=== PATIENT | female | born 1930 | race Caucasian/White ===

== ENCOUNTER 2017-09-27 10:48 | Emergency (ER) | payer OTHER ==
--- NOTE | 2017-09-27 11:49 | RAD REPORT ---
EXAM DESCRIPTION: Shoulder Right 2 View - 09/27/2017 11:32 am CLINICAL HISTORY: Trauma to the right shoulder, shoulder pain, cutaneous bruising COMPARISON: None. TECHNIQUE: Two-view right shoulder examination was performed. Initial image is in external rotation. The second image is in internal rotation scapula Y positioning. FINDINGS: No dislocation of the humeral head and no acute fracture changes identifiable. Advanced de generative changes are present with numerous subcortical degenerative cysts in the humeral head along with marginal spurring. There are spurring changes along the inferior margin of the glenoid. Patient has advanced degenerative change to the acromion. There are volume loss changes along the lateral ma rgin. This appears to be degenerative in etiology. A pathologic bone process is not suspected. Inferi keven directed spurring seen at the AC joint. Acromial humeral joint space is narrowed. Soft tissues are prominent along the lateral aspect of the humeral head. Muscle volume is relatively low. This may be a soft tissue hematoma. Ribs and parenchyma of the upper right chest show no acute findings. 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 No fracture or acute bone finding. Suspected hematoma in the soft tissues lateral to the humeral head.
--- NOTE | 2017-09-27 11:59 | ER ---
Nurse's Notes [facility] Name: Shasta Martinez Age: 87 yrs Sex: Female : 1930 Arrival Date: 09/27/2017 Time: 10:52 Bed 17 Private MD: Dagoberto Pleitez Diagnosis: Contusion of right shoulder Presentation: 09/27 10:54 Presenting complaint: Patient states: "I hit my shoulder on the doorway about 4 days aa5 ago". pt c/o right shoulder pain. Yellowish bruising noted to right anterior shoulder. 10:54 Transition of care: patient was not received from another setting of care. Onset of aa5 symptoms was September 2017. Risk Assessment: Do you want to hurt yourself or someone else? Patient reports no desire to harm self or others. Initial Sepsis Screen: Does the patient meet any 2 criteria? No. Patient's initial sepsis screen is negative. Does the patient have a suspected source of infection? No. Patient's initial sepsis screen is negative. Care prior to arrival: None. 10:54 Method Of Arrival: Ambulatory aa5 10:54 Acuity: SARIKA 4 aa5 Historical: - Allergies: 10:55 PENICILLINS; aa5 10:55 Oxycodone; aa5 10:55 "mycins"; aa5 - PMHx: 10:55 Hypertension; Atrial Fib; aa5 - PSHx: 11:07 Hysterectomy; Appendectomy; tawanna hips; L knee; aa5 - Social history:: Smoking status: Patient/guardian denies using tobacco. - Ebola Screening: : No symptoms or risks identified at this time. - Family history:: not pertinent. - Hospitalizations: : No recent hospitalization is reported. Screenin:35 Abuse screen: Denies threats or abuse. Denies injuries from another. Nutritional jl7 screening: No deficits noted. Tuberculosis screening: No symptoms or risk factors identified. Assessment: 11:35 General: Appears in no apparent distress. uncomfortable, Behavior is calm, cooperative, jl7 appropriate for age. Pain: Complains of pain in right shoulder Pain does not radiate. Pain currently is 2 out of 10 on a pain scale. Quality of pain is described as aching, Pain began 4 days ago. Neuro: Level of Consciousness is awake, alert, obeys commands, Oriented to person, place, time, situation. Cardiovascular: Patient's skin is warm and dry. Respiratory: Airway is patent Respiratory effort is even, unlabored, Respiratory pattern is regular, symmetrical. GI: No signs and/or symptoms were reported involving the gastrointestinal system. : No signs and/or symptoms were reported regarding the genitourinary system. EENT: No signs and/or symptoms were reported regarding the EENT system. Derm: Skin is pink, warm \\T\\ dry. Musculoskeletal: Range of motion: limited in right shoulder Swelling present in right shoulder. Vital Signs: 10:55 BP 170 / 82; Pulse 83; Resp 16 S; Temp 97.7(O); Pulse Ox 96% on R/A; Weight 42.64 kg aa5 (R); Height 4 ft. 11 in. (149.86 cm) (R); Pain 2/10; 12:12 BP 152 / 80; Pulse 70; Resp 18; Pulse Ox 97% on R/A; aj1 10:55 Body Mass Index 18.99 (42.64 kg, 149.86 cm) aa5 ED Course: 10:52 Patient arrived in ED. mr 10:53 Dagoberto Pleitez is Private Physician. mr 10:54 Arm band placed on Patient placed in an exam room, on a stretcher. aa5 10:55 Teodoro Walters MD is Attending Physician. rn 11:00 Liz Ribera RN is Primary Nurse. jl7 11:04 Triage completed. aa5 11:30 X-ray completed. Portable x-ray completed in exam room. Patient tolerated procedure jb2 well. 11:32 XRAY Shoulder RIGHT 2 view In Process Unspecified. EDMS 11:35 Patient has correct armband on for positive identification. Placed in gown. Bed in low jl7 position. Call light in reach. Side rails up X 1. Pulse ox on. NIBP on. 12:13 No provider procedures requiring assistance completed. Patient did not have IV access aj1 during this emergency room visit. Administered Medications: No medications were administered Outcome: 11:58 Discharge ordered by . rn 12:13 Discharged to home ambulatory. aj1 12:13 Condition: good 12:13 Discharge instructions given to patient, Instructed on discharge instructions, follow up and referral plans. Demonstrated understanding of instructions, follow-up care. 12:13 Patient left the ED. aj1 Signatures: Dispatcher [employer] EDMey Robles, RN RN aj1 Ava Glynn mr Phil, Bassem li2 Teodoro Walters MD MD rn Calderon, Divine, RN RN aa5 Liz Ribera RN RN jl7
--- NOTE | 2017-09-27 11:59 | EDPHYS ---
Physician Documentation [facility] Name: Shasta Martinez Age: 87 yrs Sex: Female : 1930 Arrival Date: 09/27/2017 Time: 10:52 Bed 17 Private MD: Dagoberto Pleitez ED Physician Teodoro Walters HPI: 09/27 11:08 This 87 yrs old Female presents to ER via Ambulatory with complaints of rn Shoulder Pain. 11:08 The patient or guardian complains of contusion, an injury. right shoulder. Onset: The rn symptoms/episode began/occurred 4 day(s) ago. Associated signs and symptoms: Pertinent negatives: chest pain, neck pain, tingling. Severity of symptoms: At their worst the symptoms were mild, in the emergency department the symptoms are unchanged. The patient has not experienced similar symptoms in the past. Reports hit shoulder on doorway 4 days ago, takes aspirin but no blood thinners, reports swelling was worse yesterday, still able to move arm at baseline (baseline is weak elevating arm), told by her physician to get xray. No other injuries. . Historical: - Allergies: 10:55 PENICILLINS; aa5 10:55 Oxycodone; aa5 10:55 "mycins"; aa5 - PMHx: 10:55 Hypertension; Atrial Fib; aa5 - PSHx: 11:07 Hysterectomy; Appendectomy; tawanna hips; L knee; aa5 - Social history:: Smoking status: Patient/guardian denies using tobacco. - Ebola Screening: : No symptoms or risks identified at this time. - Family history:: not pertinent. - Hospitalizations: : No recent hospitalization is reported. ROS: 11:08 Constitutional: Negative for fever, chills, and weight loss, Eyes: Negative for injury, rn pain, redness, and discharge, Neck: Negative for injury, pain, and swelling, Cardiovascular: Negative for chest pain, palpitations, and edema, Respiratory: Negative for shortness of breath, cough, wheezing, and pleuritic chest pain, Abdomen/GI: Negative for abdominal pain, nausea, vomiting, diarrhea, and constipation, MS/Extremity: + right shoulder pain and injury Skin: Negative for injury, rash, and discoloration, Neuro: Negative for headache, weakness, numbness, tingling, and seizure. Exam: 11:08 Constitutional: This is a well developed, well nourished patient who is awake, alert, rn and in no acute distress. Head/Face: Normocephalic, atraumatic. Neck: Trachea midline, no thyromegaly or masses palpated, and no cervical lymphadenopathy. Supple, full range of motion without nuchal rigidity, or vertebral point tenderness. No Meningismus. Chest/axilla: Normal chest wall appearance and motion. Nontender with no deformity. No lesions are appreciated. MS/ Extremity: Pulses equal, no cyanosis. Neurovascular intact. Full passive range of motion. Equal circumference. + ecchymosis to anterior and lateral right shoulder Vital Signs: 10:55 BP 170 / 82; Pulse 83; Resp 16 S; Temp 97.7(O); Pulse Ox 96% on R/A; Weight 42.64 kg aa5 (R); Height 4 ft. 11 in. (149.86 cm) (R); Pain 2/10; 12:12 BP 152 / 80; Pulse 70; Resp 18; Pulse Ox 97% on R/A; aj1 10:55 Body Mass Index 18.99 (42.64 kg, 149.86 cm) aa5 MDM: 10:55 Patient medically screened. rn 11:58 Differential diagnosis: Anterior dislocation without fracture, humeral head fracture, rn glenoid fracture, DJD, tendonitis. Data reviewed: vital signs, nurses notes, radiologic studies, plain films, and as a result, I will discharge patient. Counseling: I had a detailed discussion with the patient and/or guardian regarding: the historical points, exam findings, and any diagnostic results supporting the discharge/admit diagnosis, radiology results, the need for outpatient follow up, to return to the emergency department if symptoms worsen or persist or if there are any questions or concerns that arise at home. Special discussion: I discussed with the patient/guardian in detail that at this point there is no indication for admission to the hospital. It is understood, however, that if the symptoms persist or worsen the patient needs to return immediately for re-evaluation. 11:58 ED course: Pt with ROM at baseline, not on strong anticoagulation, xray shows narrow rn joint space, do not suspect hemarthrosis at this time, will dc home with warm compresses and gradual increase in ROM exercises with pcp f/u.. 09/27 11:05 Order name: XRAY Shoulder RIGHT 2 view; Complete Time: 11:53 rn Administered Medications: No medications were administered Disposition: 09/27/17 11:58 Discharged to Home. Impression: Contusion of right shoulder. - Condition is Stable. - Discharge Instructions: Contusion. - Medication Reconciliation Form, Thank You Letter, Antibiotic Education, Prescription Opioid Use form. - Follow up: Private Physician; When: As needed; Reason: Recheck today's complaints, Re-evaluation by your physician. - Problem is new. - Symptoms have improved. Signatures: Dispatcher [employer] EDMey Robles RN RN aj1 Teodoro Walters MD MD rn Calderon, Audri RN RN aa5 Corrections: (The following items were deleted from the chart) 12:13 11:58 09/27/2017 11:58 Discharged to Home. Impression: Contusion of right shoulder. aj1 Condition is Stable. Forms are Medication Reconciliation Form, Thank You Letter, Antibiotic Education, Prescription Opioid Use. Follow up: Private Physician; When: As needed; Reason: Recheck today's complaints, Re-evaluation by your physician. Problem is new. Symptoms have improved. rn
== END 2017-09-27 12:13 | disposition home or self-care (01) ==
LOC: ER 10:48
DX: S40.011A Contusion of right shoulder, initial encounter (principal); W22.01XA Walked into wall, initial encounter; Y92.019 Unspecified place in single-family (private) house as the place of occurrence of the external cause; Z88.1 Allergy status to other antibiotic agents; Z88.5 Allergy status to narcotic agent; Z88.0 Allergy status to penicillin; I10 Essential (primary) hypertension; I48.91 Unspecified atrial fibrillation
CPT/HCPCS: 99283

== ENCOUNTER 2017-10-20 04:59 | Emergency (ER) | payer OTHER ==
[2017-10-20] MEDS ORDERED: HYDROCODONE/APAP 5/325 MG TAB ONE (05:43)
[2017-10-20] MEDS ORDERED: LIDOCAINE 1% W/EPI 1:100,000 MDV 50 ML VIAL ONE (06:30)
[2017-10-20] MEDS ORDERED: SMZ./TMP. 800/160 MG TABLET ONE (06:57)
--- NOTE | 2017-10-20 07:03 | EDPHYS ---
Physician Documentation [facility] Name: Shasta Martinez Age: 87 yrs Sex: Female : 1930 Arrival Date: 10/20/2017 Time: 04:59 Bed 6 Private MD: Dagoberto Pleitez ED Physician Vance Rodriguez HPI: 10/20 05:26 This 87 yrs old Female presents to ER via Unassigned with complaints of madonna Shoulder Pain. 05:26 The patient or guardian complains of decreased range of motion, pain, swelling. right madonna shoulder. Context: The problem was sustained at home. Onset: The symptoms/episode began/occurred 1 month(s) ago. Modifying factors: the symptoms are alleviated by remaining still, The symptoms are aggravated by movement. Associated signs and symptoms: The patient has no apparent associated signs or symptoms. Severity of symptoms: At their worst the symptoms were mild. The patient has not experienced similar symptoms in the past. Historical: - Allergies: 05:37 "mycins"; ao 05:37 Oxycodone; ao 05:37 PENICILLINS; ao 05:37 IV contrast; ao - Home Meds: 05:37 aspirin 81 mg Oral chew 1 tab once daily [Active]; Protonix Oral [Active]; Cartia XT ao 120 mg Oral cp24 1 cap once daily [Active]; Meclizine Oral [Active]; losartan-hydrochlorothiazide 50-12.5 mg oral tab 1 tab once daily [Active]; - PMHx: 05:37 Atrial Fib; Hypertension; ao - PSHx: 05:37 Appendectomy; Tonsillectomy; Knee surgery; ao - Immunization history:: Adult Immunizations up to date. - Social history:: Smoking status: Patient uses tobacco products. - Family history:: not pertinent. - Ebola Screening: : Patient negative for fever greater than or equal to 101.5 degrees Fahrenheit, and additional compatible Ebola Virus Disease symptoms Patient denies exposure to infectious person Patient denies travel to an Ebola-affected area in the 21 days before illness onset. ROS: 05:26 Constitutional: Negative for fever, chills, and weight loss, Eyes: Negative for injury, madonna pain, redness, and discharge, ENT: Negative for injury, pain, and discharge, Neck: Negative for injury, pain, and swelling, Cardiovascular: Negative for chest pain, palpitations, and edema, Respiratory: Negative for shortness of breath, cough, wheezing, and pleuritic chest pain, Abdomen/GI: Negative for abdominal pain, nausea, vomiting, diarrhea, and constipation, Back: Negative for injury and pain, : Negative for injury, bleeding, discharge, and swelling, Skin: Negative for injury, rash, and discoloration, Neuro: Negative for headache, weakness, numbness, tingling, and seizure, Psych: Negative for depression, anxiety, suicide ideation, homicidal ideation, and hallucinations, Allergy/Immunology: Negative for hives, rash, and allergies, Endocrine: Negative for neck swelling, polydipsia, polyuria, polyphagia, and marked weight changes, Hematologic/Lymphatic: Negative for swollen nodes, abnormal bleeding, and unusual bruising. 05:26 MS/extremity: Positive for decreased range of motion, pain, swelling, tenderness, of the anterior aspect of right shoulder and posterior aspect of right shoulder. Exam: 05:26 Constitutional: This is a well developed, well nourished patient who is awake, alert, madonna and in no acute distress. Head/Face: Normocephalic, atraumatic. Eyes: Pupils equal round and reactive to light, extra-ocular motions intact. Lids and lashes normal. Conjunctiva and sclera are non-icteric and not injected. Cornea within normal limits. Periorbital areas with no swelling, redness, or edema. ENT: Nares patent. No nasal discharge, no septal abnormalities noted. Tympanic membranes are normal and external auditory canals are clear. Oropharynx with no redness, swelling, or masses, exudates, or evidence of obstruction, uvula midline. Mucous membranes moist. Neck: Trachea midline, no thyromegaly or masses palpated, and no cervical lymphadenopathy. Supple, full range of motion without nuchal rigidity, or vertebral point tenderness. No Meningismus. Chest/axilla: Normal chest wall appearance and motion. Nontender with no deformity. No lesions are appreciated. Cardiovascular: Regular rate and rhythm with a normal S1 and S2. No gallops, murmurs, or rubs. Normal PMI, no JVD. No pulse deficits. Respiratory: Lungs have equal breath sounds bilaterally, clear to auscultation and percussion. No rales, rhonchi or wheezes noted. No increased work of breathing, no retractions or nasal flaring. Abdomen/GI: Soft, non-tender, with normal bowel sounds. No distension or tympany. No guarding or rebound. No evidence of tenderness throughout. Back: No spinal tenderness. No costovertebral tenderness. Full range of motion. Female : Normal external genitalia. Skin: Warm, dry with normal turgor. Normal color with no rashes, no lesions, and no evidence of cellulitis. Neuro: Awake and alert, GCS 15, oriented to person, place, time, and situation. Cranial nerves II-XII grossly intact. Motor strength 5/5 in all extremities. Sensory grossly intact. Cerebellar exam normal. Normal gait. Psych: Awake, alert, with orientation to person, place and time. Behavior, mood, and affect are within normal limits. 05:26 Musculoskeletal/extremity: Extremities: decreased ROM, pain, swelling, tenderness, decreased ROM, ecchymosis, ROM: limited active range of motion, limited passive range of motion, Circulation is intact in all extremities. Compartment Syndrome exam of affected extremity: is normal. DVT Exam: negative Homans' sign noted on exam, no appreciated bluish discoloration, no erythema, no increased warmth, pain, swelling, tenderness. Vital Signs: 05:35 BP 159 / 89; Pulse 73; Resp 16; Temp 97.8(A); Pulse Ox 97% on R/A; Weight 40.82 kg (R); ao Height 5 ft. 2 in. (157.48 cm) (R); Pain 7/10; 06:07 BP 154 / 71; Pulse 76; Resp 18; Pulse Ox 98% on R/A; ao 07:12 BP 159 / 71; Pulse 72; Resp 16; Pulse Ox 99% on R/A; Pain 0/10; ao 05:35 Body Mass Index 16.46 (40.82 kg, 157.48 cm) ao Procedures: 06:33 Joint Treatment: of right shoulder using 18 gauge needle, Removed bloody fluid, Dressed [facility] with band aid, Neosporin, Patient tolerated well. 06:59 Joint Treatment: Removed 20 cc. [facility] MDM: 05:03 Patient medically screened. [facility] 05:29 Data reviewed: vital signs, nurses notes, radiologic studies, plain films. [facility] 10/20 05:25 Order name: Shoulder Right (2 View) XRAY [facility] 07/12 05:25 Order name: Sling; Complete Time: 05:31 [facility] 10/20 06:38 Order name: Dressing - Wound; Complete Time: 07:07 [facility] 10/20 06:38 Order name: Gloves, Sterile; Complete Time: 07:07 [facility] 10/20 06:38 Order name: Setup Suture Tray; Complete Time: 07:07 [facility] Administered Medications: 05:45 Drug: Dexter 5 mg-325 mg 1 tabs Route: PO; ao 07:06 Follow up: Response: No adverse reaction ao 07:06 Drug: Bactrim (160 mg-800 mg (DS) 1 tablet Route: PO; ao 07:06 Follow up: Response: Medication administered at discharge. ao 07:06 Drug: Lidocaine-Epinephrine -1%: (1:100,000) 4 ml Volume: 20 ml; Route: Infiltration; ao Disposition: 10/20/17 07:03 Discharged to Home. Impression: Pain in right shoulder - hematoma. - Condition is Stable. - Discharge Instructions: Shoulder Pain, Shoulder Pain, [id number]. - Prescriptions for Tylenol- Codeine #3 300-30 mg Oral Tablet - take 2 tablet by ORAL route every 6 hours As needed; 30 tablet. Motrin IB 200 mg Oral Tablet - take 1 tablet by ORAL route every 6 hours As needed as needed with food; 20 tablet. Bactrim 400- 80 mg Oral Tablet - take 1 tablet by ORAL route every 12 hours; 14 tablet. - Medication Reconciliation Form, Thank You Letter, Antibiotic Education, Prescription Opioid Use form. - Follow up: Dagoberto Pleitez; When: 2 - 3 days; Reason: Recheck today's complaints, Continuance of care, Re-evaluation by your physician. Follow up: Mike Will; When: 1 - 2 days; Reason: Recheck today's complaints, Re-evaluation by your physician. - Problem is new. - Symptoms have improved. Signatures: Dispatcher [employer] EDVance Cordero MD MD cha Ortiz, Alex RN RN ao Corrections: (The following items were deleted from the chart) 07:14 07:03 10/20/2017 07:03 Discharged to Home. Impression: Pain in right shoulder - ao hematoma. Condition is Stable. Discharge Instructions: Shoulder Pain, Shoulder Pain, [id number]. Prescriptions for Tylenol-Codeine #3 300-30 mg Oral Tablet - take 2 tablet by ORAL route every 6 hours As needed; 30 tablet, Motrin IB 200 mg Oral Tablet - take 1 tablet by ORAL route every 6 hours As needed as needed with food; 20 tablet, Bactrim 400-80 mg Oral Tablet - take 1 tablet by ORAL route every 12 hours; 14 tablet. and Forms are Medication Reconciliation Form, Thank You Letter, Antibiotic Education, Prescription Opioid Use. Follow up: Dagoberto Pleitez; When: 2 - 3 days; Reason: Recheck today's complaints, Continuance of care, Re-evaluation by your physician. Follow up: Mike Will; When: 1 - 2 days; Reason: Recheck today's complaints, Re-evaluation by your physician. Problem is new. Symptoms have improved. madonna
--- NOTE | 2017-10-20 07:03 | ER ---
Nurse's Notes [facility] Name: Shasta Martinez Age: 87 yrs Sex: Female : 1930 Arrival Date: 10/20/2017 Time: 04:59 Bed 6 Private MD: Dagoberto Pleitez Diagnosis: Pain in right shoulder-hematoma Presentation: 10/20 05:31 Presenting complaint: Patient states: "I felt few week ago and tonight my left arm is ao hurting me again" Patient report pain level 7/10. Transition of care: patient was not received from another setting of care. Onset of symptoms is unknown. Risk Assessment: Do you want to hurt yourself or someone else? Patient reports no desire to harm self or others. Initial Sepsis Screen: Does the patient meet any 2 criteria? No. Patient's initial sepsis screen is negative. Does the patient have a suspected source of infection? No. Patient's initial sepsis screen is negative. Care prior to arrival: None. 05:31 Method Of Arrival: Ambulatory ao 05:31 Acuity: SARIKA 3 ao Historical: - Allergies: 05:37 "mycins"; ao 05:37 Oxycodone; ao 05:37 PENICILLINS; ao 05:37 IV contrast; ao - Home Meds: 05:37 aspirin 81 mg Oral chew 1 tab once daily [Active]; Protonix Oral [Active]; Cartia XT ao 120 mg Oral cp24 1 cap once daily [Active]; Meclizine Oral [Active]; losartan-hydrochlorothiazide 50-12.5 mg oral tab 1 tab once daily [Active]; - PMHx: 05:37 Atrial Fib; Hypertension; ao - PSHx: 05:37 Appendectomy; Tonsillectomy; Knee surgery; ao - Immunization history:: Adult Immunizations up to date. - Social history:: Smoking status: Patient uses tobacco products. - Family history:: not pertinent. - Ebola Screening: : Patient negative for fever greater than or equal to 101.5 degrees Fahrenheit, and additional compatible Ebola Virus Disease symptoms Patient denies exposure to infectious person Patient denies travel to an Ebola-affected area in the 21 days before illness onset. Screenin:47 Abuse screen: Denies threats or abuse. Denies injuries from another. Nutritional ao screening: No deficits noted. Tuberculosis screening: No symptoms or risk factors identified. Fall Risk None identified. Assessment: 05:37 General: Appears in no apparent distress. comfortable, Behavior is calm, cooperative, ao appropriate for age. Pain: Complains of pain in right shoulder Pain currently is 7 out of 10 on a pain scale. Neuro: Level of Consciousness is awake, alert, obeys commands, Oriented to Moves all extremities. Full function Speech is normal, Facial symmetry appears normal. Cardiovascular: Capillary refill < 3 seconds Patient's skin is warm and dry. Respiratory: Airway is patent Respiratory effort is even, unlabored, Respiratory pattern is regular, symmetrical. GI: Abdomen is non-distended. : No signs and/or symptoms were reported regarding the genitourinary system. EENT: No signs and/or symptoms were reported regarding the EENT system. Derm: Skin is intact, Skin is pink, warm \\T\\ dry. normal, Skin temperature is warm. Musculoskeletal: Reports pain in right shoulder. 06:07 Reassessment: Patient appears in no apparent distress at this time. Patient and/or ao family updated on plan of care and expected duration. Pain level reassessed. Patient is alert, oriented x 3, equal unlabored respirations, skin warm/dry/pink. 07:12 Reassessment: DC instructions given to patient and daughter. Patient understand the POC ao and to follow up with PCP and orthopedic. PAtient has no questions at this time. Vital Signs: 05:35 BP 159 / 89; Pulse 73; Resp 16; Temp 97.8(A); Pulse Ox 97% on R/A; Weight 40.82 kg (R); ao Height 5 ft. 2 in. (157.48 cm) (R); Pain 7/10; 06:07 BP 154 / 71; Pulse 76; Resp 18; Pulse Ox 98% on R/A; ao 07:12 BP 159 / 71; Pulse 72; Resp 16; Pulse Ox 99% on R/A; Pain 0/10; ao 05:35 Body Mass Index 16.46 (40.82 kg, 157.48 cm) ao ED Course: 04:59 Patient arrived in ED. ds1 05:00 Dagoberto Pleitez is Private Physician. ds1 05:03 Vance Rodriguez MD is Attending Physician. madonna 05:22 Yoel Carrillo RN is Primary Nurse. ao 05:33 Triage completed. ao 05:33 Arm band placed on right wrist. Patient placed in an exam room, on a stretcher, on ao pulse oximetry, Patient notified of wait time. 05:46 X-ray completed. Portable x-ray completed in exam room. Patient tolerated procedure kw well. 05:47 Patient has correct armband on for positive identification. Pulse ox on. NIBP on. ao 06:40 Shoulder Right (2 View) XRAY In Process Unspecified. EDOR 07:03 Dagoberto Pleitez is Referral Physician. [facility] 07:03 Mike Will MD is Referral Physician. madonna 07:07 No provider procedures requiring assistance completed. Patient did not have IV access ao during this emergency room visit. Administered Medications: 05:45 Drug: [place] 5 mg-325 mg 1 tabs Route: PO; ao 07:06 Follow up: Response: No adverse reaction ao 07:06 Drug: Bactrim (160 mg-800 mg (DS) 1 tablet Route: PO; ao 07:06 Follow up: Response: Medication administered at discharge. ao 07:06 Drug: Lidocaine-Epinephrine -1%: (1:100,000) 4 ml Volume: 20 ml; Route: Infiltration; ao Outcome: 07:03 Discharge ordered by . madonna 07:07 Discharged to home ambulatory. ao 07:07 Condition: stable 07:07 Discharge instructions given to patient, Instructed on discharge instructions, follow up and referral plans. Demonstrated understanding of instructions, follow-up care, medications. 07:14 Patient left the ED. ao Signatures: Dispatcher [employer] Vance Mccarthy MD MD cha [place], Demi ds1 Aleksandra Nolasco Alex, RN RN ao
--- NOTE | 2017-10-20 08:45 | RAD REPORT ---
EXAM DESCRIPTION: RAD - Shoulder Right 2 View - 10/20/2017 6:40 am CLINICAL HISTORY: Right shoulder pain status post fall FINDINGS: The bones are osteoporotic. The humeral head is high riding indicative of a chronic rotato r cuff tear A Hill-Sachs deformity is suspected. No dislocation is noted. Moderate to marked osteoarthritis is seen
== END 2017-10-20 07:14 | disposition home or self-care (01) ==
LOC: ER 04:59
PROC: 0R9J3ZZ Drainage of Right Shoulder Joint, Percutaneous Approach (ICD-10-PCS; principal; 2017-10-20)
DX: M25.512 Pain in left shoulder (principal); Z88.5 Allergy status to narcotic agent; Z88.0 Allergy status to penicillin; Z88.3 Allergy status to other anti-infective agents; Z91.041 Radiographic dye allergy status; I10 Essential (primary) hypertension; I48.91 Unspecified atrial fibrillation
CPT/HCPCS: 99283

== ENCOUNTER 2018-03-17 11:58 | Emergency (ER) | payer OTHER ==
--- NOTE | 2018-03-17 12:39 | RAD REPORT ---
EXAM DESCRIPTION: CT - CTHCSPWOC - 03/17/2018 12:27 pm CLINICAL HISTORY: Fall, head and neck trauma, headache, neck pain COMPARISON: None. TECHNIQUE: Axial 5 mm thick images of the head were obtained. Axial 2 mm thick images of the cervic al spine were obtained with sagittal and coronal reconstruction images generated and reviewed. All CT scans are performed using dose optimization technique as appropriate and may include automated exposure control or mA/KV adjustment according to patient size. FINDINGS: No intracranial hemorrhage, mass, edema or acute intracranial finding. No suspicion for acute infarct ion. Patient has prominent chronic ischemic change throughout the cerebral white matter. This is foca lly more prominent in the posterior right frontal lobe. Moderate atrophy is present with ventricular size in proportion. Arterial and physiologic calcifications are present. Mastoid air cells and parana jose sinuses are clear. No globe or orbit abnormality seen. Patient has a small superior left parietal scalp hematoma. No foreign body. Osteopenic changes are present in the skull. No fracture or patholo gic bone process. Patient has significant bilateral TM joint degenerative change. Cervical bodies are normal in height. Slight anterior subluxation of C3 on C4 and C4 on C5 noted. Pat ient has facet degenerative change that could account for the subluxation. Moderate C5-6 and advanced C6-7 disc space narrowing seen. Posterior endplate spurs are present. No central spinal stenosis lik rachel. Very advanced facet degenerative changes are present. No significant bony foraminal encroachment . No fracture or acute bony abnormality. No paraspinal mass or hematoma. Central canal detail is inherently limited. IMPRESSION: No hemorrhage, mass or other acute intracranial finding. Patient has a small left pariet al scalp hematoma. Advanced atrophy and chronic ischemic changes are present. Nonhemorrhagic acute infarction can be mas ked by the chronic changes. Advanced cervical spine degenerative change without acute finding.
--- NOTE | 2018-03-17 12:46 | RAD REPORT ---
EXAM DESCRIPTION: RAD - Pelvis - 03/17/2018 12:39 pm CLINICAL HISTORY: Fall, back pain and right hip pain COMPARISON: None. TECHNIQUE: AP imaging of the pelvis was obtained. FINDINGS: Prominent lower lumbar degenerative changes are present only partially imaged. Sacral ala partially obscured but without gross evidence for fracture. SI joint degenerative changes are present . Left hip prosthesis in place showing no acute finding. There is degenerative remodeling of the acetab ulum. Right hip prosthesis is in place. The femoral component has been dislocated superior and lateral to t he acetabular cup. No associated fracture. IMPRESSION: Dislocation of the right femoral component from the acetabular cup. No fracture identified.
--- NOTE | 2018-03-17 12:47 | RAD REPORT ---
EXAM DESCRIPTION: RAD - Hip Right 2 View - 03/17/2018 12:40 pm CLINICAL HISTORY: Fall, hip pain COMPARISON: Pelvis same day FINDINGS: AP and frog-leg views of the right hip were obtained. Right hip prosthesis is in place. T he femoral component has been dislocated anteriorly and superiorly to the acetabular cup. No fracture or acute bone finding. Degenerative changes are seen in the SI joints and pubic symphysis. No acute or destructive bony process seen. IMPRESSION: Anterior superior dislocation of the femoral component from the acetabular cup.
--- NOTE | 2018-03-17 12:48 | RAD REPORT ---
EXAM DESCRIPTION: RAD - Chest Single View - 03/17/2018 12:42 pm CLINICAL HISTORY: Fall, dislocation of right hip prosthesis COMPARISON: None. TECHNIQUE: AP portable chest image was obtained 1225 hour . FINDINGS: Patient has a baseline of interstitial fibrosis. No superimposed failure, infiltrate or ma ss. Heart size is prominent. No acute vascular engorgement. Diaphragmatic eventration is present. No measurable pleural effusion and no pneumothorax. Prominent thoracic spine degenerative changes are pr esent. No acute thoracic findings suspected. No acute aortic findings suspected. IMPRESSION: Interstitial fibrotic pattern with no acute cardiopulmonary finding.
[2018-03-17] MEDS ORDERED: FENTANYL CITR 100 MCG/2 ML ONE (14:00)
[2018-03-17] MEDS ORDERED: PROPOFOL 200 MG/20 ML VIAL IV ONE (14:01)
[2018-03-17] MEDS ORDERED: ONDANSETRON 4 MG/2 ML VIAL ONE (14:01)
--- NOTE | 2018-03-17 15:10 | RAD REPORT ---
EXAM DESCRIPTION: RAD - Hip Right 2 View - 03/17/2018 2:53 pm CLINICAL HISTORY: Right hip prosthesis dislocation COMPARISON: Pelvic and hip films same date FINDINGS: Two images were obtained labeled post reduction. Femoral component appears normally positi oned superimposed on the acetabular cup. No fracture or acute finding. No radiographic evidence for i mplant loosening. No acute or destructive bony process seen. IMPRESSION: Right femoral component has been reduced back to the acetabular cup.
--- NOTE | 2018-03-17 15:52 | ER ---
Nurse's Notes [facility] Name: Shasta Martinez Age: 87 yrs Sex: Female : 1930 Arrival Date: 03/17/2018 Time: 12:09 Bed 15 Private MD: Dagoberto Pleitez Diagnosis: Dislocation of internal right hip prosthesis;Other anterior dislocation of right hip Presentation: 03/17 12:10 Presenting complaint: EMS states: pt was walking at [employer] when she felt sg her leg give way under the weight of her body, lost balance and fell on her left side, reports hitting back of head and feeling dizzy afterwards, denies LOC, unable to bear weight on her right leg, reports right hip pain that is made better with no movement, pt reports feeling fine as long as she doesn't move her right leg. Care prior to arrival: Cervical collar in place. Placed on backboard. Mechanism of Injury: Fall from standing position. Trauma event details: Injury occurred in the [facility], Injury occurred: in a public building. Injury occurred: March 17, 2018. 12:10 Acuity: SARIKA 2 sg 12:10 Method Of Arrival: EMS: [facility] sg 12:10 Presenting complaint: at bedside evaluating pt at this time. sg 12:10 Transition of care: patient was not received from another setting of care. Onset of sg symptoms was March 17, 2018. Risk Assessment: Do you want to hurt yourself or someone else? Patient reports no desire to harm self or others. Initial Sepsis Screen: Does the patient meet any 2 criteria? No. Patient's initial sepsis screen is negative. Does the patient have a suspected source of infection? No. Patient's initial sepsis screen is negative. Trauma Activation: Alert Physician: ED Physician; Name: ; Notified At: ; Arrived At: Physician: General Surgeon; Name: ; Notified At: ; Arrived At: Physician: Radiology; Name: ; Notified At: ; Arrived At: Physician: Respiratory; Name: ; Notified At: ; Arrived At: Physician: Lab; Name: ; Notified At: ; Arrived At: Historical: - Allergies: 12:13 "mycins"; sg 12:13 IV contrast; sg 12:13 Oxycodone; sg 12:13 PENICILLINS; sg - PMHx: 12:13 Atrial Fib; Hypertension; sg - PSHx: 12:13 Appendectomy; Tonsillectomy; Knee surgery; sg - Immunization history: Last tetanus immunization: - up to date. Screenin:14 Abuse screen: Denies threats or abuse. Denies injuries from another. Tuberculosis sg screening: No symptoms or risk factors identified. Never had TB. Primary Survey: 12:14 A: Airway: patent. Breathing/Chest: Respiratory pattern: regular, Respiratory effort: sg spontaneous, unlabored, Breath sounds: clear, Chest inspection: symmetrical rise and fall of the chest. Circulation: Heart tones present. Pulses: palpable right radial artery, right posterior tibial artery, left radial artery and left posterior tibial artery. Skin color: pink. Disability Alert. Secondary Survey: 12:14 HEENT: Head Other swelling noted to occiptal area, no bleeding note at thi stime. sg Gastrointestinal: No deficits noted. : No signs and/or symptoms were reported regarding the genitourinary system. Musculoskeletal: Capillary refill is brisk, in bilateral fingers. Range of motion: limited in right hip Swelling absent. Assessment: 13:10 Reassessment: Patient appears in no apparent distress at this time. Patient and/or sg family updated on plan of care and expected duration. Pain level reassessed. Patient is alert, oriented x 3, equal unlabored respirations, skin warm/dry/pink. pt son remains at bedside at this time Patient states feeling better. 14:10 Reassessment: Patient appears in no apparent distress at this time. Patient and/or sg family updated on plan of care and expected duration. Pain level reassessed. pt currently having IV moderate sedation procedure. Vital Signs: 12:14 BP 174 / 86; Pulse 77; Resp 17 S; Temp 97.2; Pulse Ox 99% on R/A; Pain 3/10; sg 13:14 BP 155 / 78; Pulse 69; Resp 17; Pulse Ox 99% on R/A; Pain 3/10; sg 14:14 BP 152 / 77; Pulse 68; Resp 17; Pulse Ox 100% on R/A; Pain 3/10; sg 15:14 BP 142 / 70; Pulse 70; Resp 17; Pulse Ox 100% on R/A; Pain 3/10; sg [place] Coma Score: 12:14 Eye Response: spontaneous(4). Verbal Response: oriented(5). Motor Response: obeys sg commands(6). Total: 15. 13:14 Eye Response: spontaneous(4). Verbal Response: oriented(5). Motor Response: obeys sg commands(6). Total: 15. 14:14 Eye Response: spontaneous(4). Verbal Response: oriented(5). Motor Response: obeys sg commands(6). Total: 15. Trauma Score (Adult): 12:14 Eye Response: spontaneous(1); Verbal Response: oriented(1); Motor Response: obeys sg commands(2); Systolic BP: > 89 mm Hg(4); Respiratory Rate: 10 to 29 per min(4); Vanita Score: 15; Trauma Score: 12 13:14 Eye Response: spontaneous(1); Verbal Response: oriented(1); Motor Response: obeys sg commands(2); Systolic BP: > 89 mm Hg(4); Respiratory Rate: 10 to 29 per min(4); Vanita Score: 15; Trauma Score: 12 14:14 Eye Response: spontaneous(1); Verbal Response: oriented(1); Motor Response: obeys sg commands(2); Systolic BP: > 89 mm Hg(4); Respiratory Rate: 10 to 29 per min(4); Vanita Score: 15; Trauma Score: 12 ED Course: 12:09 Patient arrived in ED. iw 12:10 Stewart Lawrence MD is Attending Physician. kdr 12:10 Mike Gooden, TARUN is Primary Nurse. sg 12:10 Dagoberto Pleitez is Private Physician. sg 12:10 Arm band placed on. sg 12:13 Triage completed. sg 12:13 Patient maintains SpO2 saturation greater than 95% on room air. sg 12:27 CT Head C Spine In Process Unspecified. EDMS 12:39 X-ray completed. Patient tolerated procedure well. Patient moved back from radiology. mh1 12:40 Pelvis XRAY In Process Unspecified. EDMS 12:40 Hip Right 2 View XRAY In Process Unspecified. EDMS 12:42 Chest Single View XRAY In Process Unspecified. EDMS 13:10 Thermoregulation: warm blanket given to patient. sg 13:10 Patient has correct armband on for positive identification. Placed in gown. Bed in low sg position. Call light in reach. Side rails up X2. technical communicator on. Pulse ox on. NIBP on. Door closed. pt son remains at bedside at this time Warm blanket given. Pillow given. Head of bed lowered. 13:55 Consent for conscious sedation explained by physician, Signed by Executor, pt son Silviano cailin RN and POA per pt. 14:00 Inserted saline lock: 22 gauge in right forearm, using aseptic technique. Blood sg collected. IV access obtained for IV conscious sedation. 14:02 Assist provider with reduction of right pathologic or non traumatic hip using sg manipulation, Set up for procedure. Performed by Stewart Lawrence MD Patient tolerated well. See Moderate Sedation paperwork. 14:50 X-ray completed. Portable x-ray completed in exam room. Patient tolerated procedure ml well. 14:58 Hip Right 2 View In Process Unspecified. EDMS 16:00 IV discontinued, intact, bleeding controlled, No redness/swelling at site. Pressure sg dressing applied. Administered Medications: No medications were administered Intake: 12:14 PO: 0ml; Total: 0ml. sg Output: 14:14 Urine: 600ml (Voided); Total: 600ml. sg Outcome: 15:51 Discharge ordered by . kdr 16:00 Discharged to home via wheelchair, with family. sg 16:00 Condition: good 16:00 Discharge instructions given to patient, family, Instructed on discharge instructions, follow up and referral plans. no drinking with medication, no driving heavy equipment, medication usage, safety practices, Demonstrated understanding of instructions, follow-up care, medications, Prescriptions given X 1. 16:00 Patient's length of stay in the Emergency Department was greater than 2 hours. Patient's length of stay was extended due to staffing issues within the emergency department. 16:07 Patient left the ED. sg Signatures: Dispatcher [employer] EDMS Mike Gooden, RN Stewart Bourgeois MD MD [facility] Tiffanie Ni [facility] Shoshana Barker, RN Kaitlynn Diaz ml Corrections: (The following items were deleted from the chart) 16:17 16:00 No provider procedures requiring assistance completed. sg sg 16:19 12:10 Presenting complaint: EMS states: pt was walking at [employer] when she sg lost her balance and fell on her left side, reports hitting back of head and feeling dizzy afterwards, denies LOC, unable to bear weight on her right leg, reports right hip pain that is made better with no movement, pt reports feeling fine as long as she doesn't move her right leg sg
--- NOTE | 2018-03-17 15:52 | EDPHYS ---
Physician Documentation [facility] Name: Shasta Martinez Age: 87 yrs Sex: Female : 1930 Arrival Date: 03/17/2018 Time: 12:09 Bed 15 Private MD: Dagoberto Pleitez ED Physician Stewart Lawrence HPI: 03/17 13:11 This 87 yrs old Female presents to ER via EMS with complaints of Hip Injury - kdr Right. 13:11 The patient or guardian reports decreased range of motion, deformity, an injury, pain, kdr possible dislocation. that occurred at a store, sustained from a fall, from a standing position, Leg gave out on her, the right lower extremity is shortened, right leg is externally rotated, The patient is not able to ambulate. Patient is not able to bear weight. There is no radiation of the patient's discomfort. The complaints affect the right hip. Onset: The symptoms/episode began/occurred suddenly, just prior to arrival. Modifying factors: The symptoms are alleviated by nothing, the symptoms are aggravated by any movement. Associated signs and symptoms: Loss of consciousness: the patient experienced no loss of consciousness, Pertinent positives: None. Pertinent negatives: None. Severity of symptoms: At their worst the symptoms were mild, moderate, just prior to arrival, in the emergency department the symptoms are unchanged. The patient has not experienced similar symptoms in the past. The patient has not recently seen a physician. had prior bilateral hip replacements. Historical: - Allergies: 12:13 "mycins"; sg 12:13 IV contrast; sg 12:13 Oxycodone; sg 12:13 PENICILLINS; sg - PMHx: 12:13 Atrial Fib; Hypertension; sg - PSHx: 12:13 Appendectomy; Tonsillectomy; Knee surgery; sg - Immunization history: Last tetanus immunization: - up to date. ROS: 13:11 Constitutional: Negative for fever, chills, and weight loss, Eyes: Negative for injury, kdr pain, redness, and discharge, ENT: Negative for injury, pain, and discharge, Neck: Negative for injury, pain, and swelling, Cardiovascular: Negative for chest pain, palpitations, and edema, Respiratory: Negative for shortness of breath, cough, wheezing, and pleuritic chest pain, Abdomen/GI: Negative for abdominal pain, nausea, vomiting, diarrhea, and constipation, Back: Negative for injury and pain, Skin: Negative for injury, rash, and discoloration, Neuro: Negative for headache, weakness, numbness, tingling, and seizure activity. Psych: Negative for depression, anxiety, suicide ideation, homicidal ideation, and hallucinations, Allergy/Immunology: Negative for hives, rash, and allergies, Endocrine: Negative for neck swelling, polydipsia, polyuria, polyphagia, and marked weight changes, Hematologic/Lymphatic: Negative for swollen nodes, abnormal bleeding, and unusual bruising. 13:11 MS/extremity: Positive for injury or acute deformity, decreased range of motion, pain, tenderness, of the right hip. Exam: 13:11 Constitutional: This is a well developed, well nourished patient who is awake, alert, kdr and in no acute distress. Head/Face: Normocephalic, atraumatic. Eyes: Pupils equal round and reactive to light, extra-ocular motions intact. Lids and lashes normal. Conjunctiva and sclera are non-icteric and not injected. Cornea within normal limits. Periorbital areas with no swelling, redness, or edema. Neck: Trachea midline, no thyromegaly or masses palpated, and no cervical lymphadenopathy. Supple, full range of motion without nuchal rigidity, or vertebral point tenderness. No Meningismus. Chest/axilla: Normal chest wall appearance and motion. Nontender with no deformity. No lesions are appreciated. Cardiovascular: Regular rate and rhythm with a normal S1 and S2. No gallops, murmurs, or rubs. Normal PMI, no JVD. No pulse deficits. Respiratory: Lungs have equal breath sounds bilaterally, clear to auscultation and percussion. No rales, rhonchi or wheezes noted. No increased work of breathing, no retractions or nasal flaring. Abdomen/GI: Soft, non-tender, with normal bowel sounds. No distension or tympany. No guarding or rebound. No evidence of tenderness throughout. Back: No spinal tenderness. No costovertebral tenderness. Full range of motion. Skin: Warm, dry with normal turgor. Normal color with no rashes, no lesions, and no evidence of cellulitis. Neuro: Awake and alert, GCS 15, oriented to person, place, time, and situation. Cranial nerves II-XII grossly intact. Motor strength 5/5 in all extremities. Sensory grossly intact. Cerebellar exam normal. Normal gait. Psych: Awake, alert, with orientation to person, place and time. Behavior, mood, and affect are within normal limits. 13:11 Musculoskeletal/extremity: Extremities: grossly normal except: decreased ROM, pain, swelling, tenderness. Vital Signs: 12:14 BP 174 / 86; Pulse 77; Resp 17 S; Temp 97.2; Pulse Ox 99% on R/A; Pain 3/10; sg 13:14 BP 155 / 78; Pulse 69; Resp 17; Pulse Ox 99% on R/A; Pain 3/10; sg 14:14 BP 152 / 77; Pulse 68; Resp 17; Pulse Ox 100% on R/A; Pain 3/10; sg 15:14 BP 142 / 70; Pulse 70; Resp 17; Pulse Ox 100% on R/A; Pain 3/10; sg Frankewing Coma Score: 12:14 Eye Response: spontaneous(4). Verbal Response: oriented(5). Motor Response: obeys sg commands(6). Total: 15. 13:14 Eye Response: spontaneous(4). Verbal Response: oriented(5). Motor Response: obeys sg commands(6). Total: 15. 14:14 Eye Response: spontaneous(4). Verbal Response: oriented(5). Motor Response: obeys sg commands(6). Total: 15. Trauma Score (Adult): 12:14 Eye Response: spontaneous(1); Verbal Response: oriented(1); Motor Response: obeys sg commands(2); Systolic BP: > 89 mm Hg(4); Respiratory Rate: 10 to 29 per min(4); Frankewing Score: 15; Trauma Score: 12 13:14 Eye Response: spontaneous(1); Verbal Response: oriented(1); Motor Response: obeys sg commands(2); Systolic BP: > 89 mm Hg(4); Respiratory Rate: 10 to 29 per min(4); Vanita Score: 15; Trauma Score: 12 14:14 Eye Response: spontaneous(1); Verbal Response: oriented(1); Motor Response: obeys sg commands(2); Systolic BP: > 89 mm Hg(4); Respiratory Rate: 10 to 29 per min(4); Frankewing Score: 15; Trauma Score: 12 Procedures: 15:53 Reduction: of the right hip, using traction, manipulation, Immobilized with Patient kdr tolerated well. Post reduction film - reveals normal alignment. N/v intact post reduction. 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 MDM: 15:51 Patient medically screened. kdr 15:53 Data reviewed: vital signs, nurses notes. kdr 03/17 12:20 Order name: CT Head C Spine; Complete Time: 13:05 kdr 03/17 12:20 Order name: Pelvis XRAY; Complete Time: 13:05 kdr 03/17 12:20 Order name: Hip Right 2 View XRAY; Complete Time: 13:05 kdr 03/17 12:34 Order name: Chest Single View XRAY; Complete Time: 13:05 bd 03/17 14:58 Order name: Hip Right 2 View EDMS Administered Medications: No medications were administered Disposition: 03/17/18 15:51 Discharged to Home. Impression: Dislocation of internal right hip prosthesis, Other anterior dislocation of right hip. - Condition is Stable. - Discharge Instructions: Hip Dislocation, [id number]. - Prescriptions for Tramadol 50 mg Oral Tablet - take 1 tablet by ORAL route every 8 hours as needed; 12 tablet. - Medication Reconciliation Form, Thank You Letter, Prescription Opioid Use form. - Follow up: Private Physician; When: 2 - 3 days; Reason: If symptoms return, Further diagnostic work-up, Recheck today's complaints, Continuance of care, Re-evaluation by your physician. - Problem is new. - Symptoms have improved. Critical care time excluding procedures: 15:56 Critical care time: Bedside Care: 30 minutes, Family Intervention: 5 minutes. Total kdr time: 35 minutes Signatures: Dispatcher [employer] EDMS Mike Gooden RN Stewart Bourgeois MD MD kdr Corrections: (The following items were deleted from the chart) 14:30 14:16 Hip Right 2 View+RAD.RAD.BRZ ordered. EDMS EDMS 14:57 14:30 Hip Right 1 View ordered. EDMS EDMS 16:07 15:51 03/17/2018 15:51 Discharged to Home. Impression: Dislocation of internal right sg hip prosthesis; Other anterior dislocation of right hip. Condition is Stable. Forms are Medication Reconciliation Form, Thank You Letter, Antibiotic Education, Prescription Opioid Use. Follow up: Private Physician; When: 2 - 3 days; Reason: If symptoms return, Further diagnostic work-up, Recheck today's complaints, Continuance of care, Re-evaluation by your physician. Problem is new. Symptoms have improved. kdr
== END 2018-03-17 16:07 | disposition home or self-care (01) ==
LOC: ER 11:58
PROC: 0SS9XZZ Reposition Right Hip Joint, External Approach (ICD-10-PCS; principal; 2018-03-17)
DX: T84.020A Dislocation of internal right hip prosthesis, initial encounter (principal); S73.034A Other anterior dislocation of right hip, initial encounter; W18.39XA Other fall on same level, initial encounter; Y93.89 Activity, other specified; Y92.512 Supermarket, store or market as the place of occurrence of the external cause; Z88.0 Allergy status to penicillin; Z88.3 Allergy status to other anti-infective agents; Z88.5 Allergy status to narcotic agent; Z91.041 Radiographic dye allergy status; I10 Essential (primary) hypertension
CPT/HCPCS: 27252; 70450; 71045; 72125; 72170; 73502 ×2; 99285; J2405; J2704; J3010

== ENCOUNTER 2018-08-30 04:06 | Emergency (ER) | payer OTHER ==
--- NOTE | 2018-08-30 07:00 | EDPHYS ---
Physician Documentation [facility] Name: Shasta Martinez Age: 88 yrs Sex: Female : 1930 Arrival Date: 08/30/2018 Time: 04:11 Bed 13 Private MD: Dagoberto Pleitez ED Physician Vance Rodriguez HPI: 08/30 05:00 This 88 yrs old Female presents to ER via Wheelchair with complaints of Leg madonna Pain. 05:00 The patient presents with decreased range of motion, pain. The complaints affect the madonna left hip, lateral aspect of left thigh, left upper thigh and left quadriceps, coccyx and left gluteus tiff. Context: The problem was sustained at an unknown site. Onset: The symptoms/episode began/occurred 2 day(s) ago. Modifying factors: The symptoms are alleviated by nothing. the symptoms are aggravated by nothing. Associated signs and symptoms: The patient has no apparent associated signs or symptoms. Severity of symptoms: At their worst the symptoms were mild, moderate, in the emergency department the symptoms are unchanged. The patient has not experienced similar symptoms in the past. 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 - Social history:: Smoking status: unknown. - Ebola Screening: : No symptoms or risks identified at this time. - Family history:: not pertinent. ROS: 05:00 Constitutional: Negative for fever, chills, and weight loss, Eyes: Negative for injury, madonna pain, redness, and discharge, ENT: Negative for injury, pain, and discharge, Neck: Negative for injury, pain, and swelling, Cardiovascular: Negative for chest pain, palpitations, and edema, Respiratory: Negative for shortness of breath, cough, wheezing, and pleuritic chest pain, Abdomen/GI: Negative for abdominal pain, nausea, vomiting, diarrhea, and constipation, : Negative for injury, bleeding, discharge, and swelling, Skin: Negative for injury, rash, and discoloration, Neuro: Negative for headache, weakness, numbness, tingling, and seizure, Psych: Negative for depression, anxiety, suicide ideation, homicidal ideation, and hallucinations, Allergy/Immunology: Negative for hives, rash, and allergies, Endocrine: Negative for neck swelling, polydipsia, polyuria, polyphagia, and marked weight changes, Hematologic/Lymphatic: Negative for swollen nodes, abnormal bleeding, and unusual bruising. 05:00 Back: Positive for decreased range of motion, pain at rest. 05:00 MS/extremity: Positive for decreased range of motion, pain, of the left hip, lateral aspect of left thigh, left upper thigh and left quadriceps. Exam: 05:00 Constitutional: This is a well developed, well nourished patient who is awake, alert, madonna and in no acute distress. Head/Face: Normocephalic, atraumatic. Eyes: Pupils equal round and reactive to light, extra-ocular motions intact. Lids and lashes normal. Conjunctiva and sclera are non-icteric and not injected. Cornea within normal limits. Periorbital areas with no swelling, redness, or edema. ENT: Nares patent. No nasal discharge, no septal abnormalities noted. Tympanic membranes are normal and external auditory canals are clear. Oropharynx with no redness, swelling, or masses, exudates, or evidence of obstruction, uvula midline. Mucous membranes moist. Neck: Trachea midline, no thyromegaly or masses palpated, and no cervical lymphadenopathy. Supple, full range of motion without nuchal rigidity, or vertebral point tenderness. No Meningismus. Chest/axilla: Normal chest wall appearance and motion. Nontender with no deformity. No lesions are appreciated. Cardiovascular: Regular rate and rhythm with a normal S1 and S2. No gallops, murmurs, or rubs. Normal PMI, no JVD. No pulse deficits. Respiratory: Lungs have equal breath sounds bilaterally, clear to auscultation and percussion. No rales, rhonchi or wheezes noted. No increased work of breathing, no retractions or nasal flaring. Abdomen/GI: Soft, non-tender, with normal bowel sounds. No distension or tympany. No guarding or rebound. No evidence of tenderness throughout. Back: No spinal tenderness. No costovertebral tenderness. Full range of motion. Skin: Warm, dry with normal turgor. Normal color with no rashes, no lesions, and no evidence of cellulitis. Neuro: Awake and alert, GCS 15, oriented to person, place, time, and situation. Cranial nerves II-XII grossly intact. Motor strength 5/5 in all extremities. Sensory grossly intact. Cerebellar exam normal. Normal gait. Psych: Awake, alert, with orientation to person, place and time. Behavior, mood, and affect are within normal limits. 05:00 Musculoskeletal/extremity: Extremities: grossly normal except: noted in the pelvis, left hip, lateral aspect of left thigh, left upper thigh and left quadriceps: decreased ROM, pain. Vital Signs: 04:27 BP 155 / 86; Pulse 84; Resp 18; Temp 98.6(TE); Pulse Ox 96% on R/A; Weight 40.82 kg ak1 (R); Height 4 ft. 11 in. (149.86 cm) (R); Pain 8/10; 06:47 BP 150 / 80; Pulse 80; Resp 18; Pulse Ox 97% on R/A; ea 08:14 BP 141 / 87; Pulse 77; Resp 17; Pulse Ox 95% on R/A; tw2 04:27 Body Mass Index 18.18 (40.82 kg, 149.86 cm) ak1 MDM: 04:43 Patient medically screened. [facility] 05:03 Data reviewed: vital signs, nurses notes, radiologic studies, plain films. 08/30 06:30 Order name: Basic Metabolic Panel 08/30 06:30 Order name: CBC with Diff 08/30 06:30 Order name: LFT's; Complete Time: 07:39 [facility] 08/30 06:30 Order name: Magnesium; Complete Time: 07:39 [facility] 08/30 06:30 Order name: NT PRO-BNP; Complete Time: 07:39 [facility] 08/30 06:30 Order name: PT-INR; Complete Time: 07:39 [facility] 08/30 05:00 Order name: Lumbar Spine (3 Views) XRAY [facility] 08/30 05:00 Order name: Pelvis XRAY [facility] 08/30 05:00 Order name: Hip Left 2 View XRAY [facility] 08/30 05:00 Order name: Femur Left XRAY [facility] 08/30 06:30 Order name: Troponin (emerg Dept Use Only); Complete Time: 07:39 [facility] 08/30 06:30 Order name: XRAY Chest (1 view) [facility] 08/30 06:31 Order name: Basic Metabolic Panel; Complete Time: 07:39 EDDE 08/30 06:31 Order name: CBC with Automated Diff; Complete Time: 07:39 EDDE 08/30 06:30 Order name: EKG; Complete Time: 06:32 [facility] 08/30 06:30 Order name: Cardiac monitoring; Complete Time: 07:20 [facility] 08/30 06:30 Order name: EKG - Nurse/Tech; Complete Time: 07:20 [facility] 08/30 06:30 Order name: IV Saline Lock; Complete Time: 07:00 [facility] 08/30 06:30 Order name: Labs collected and sent; Complete Time: 07:00 [facility] 08/30 06:30 Order name: O2 Per Protocol; Complete Time: 07:00 [facility] 08/30 06:30 Order name: O2 Sat Monitoring; Complete Time: 07:00 [facility] Administered Medications: No medications were administered Disposition: 08/30/18 06:59 Transfer ordered to [facility]. 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 - Reason for transfer: Higher level of care. - Accepting physician is to ortho . - Condition is Fair. - Problem is new. - Symptoms have improved. Signatures: Dispatcher [employer] Vance Mccarthy MD MD cha Krenek, Amber RN RN ak1 Nicky Barajas RN RN tw2 Corrections: (The following items were deleted from the chart) 06:59 06:59 08/30/2018 06:59 Transfer ordered to [facility]. 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 Reason for transfer: Higher level of care. Accepting physician is to ortho . Condition is Fair. Problem is new. Symptoms have improved. madonna 07:14 06:59 08/30/2018 06:59 Transfer ordered to [facility]. 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 Reason for transfer: Higher level of care. Accepting physician is to ortho . Condition is Fair. Problem is new. Symptoms have improved. madonna 08:15 07:14 08/30/2018 06:59 Transfer ordered to [facility]. 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 Reason for transfer: Higher level of care. Accepting physician is to ortho . Condition is Fair. Problem is new. Symptoms have improved. madonna
--- NOTE | 2018-08-30 07:00 | ER ---
Nurse's Notes [facility] Name: Shasta Martinez Age: 88 yrs Sex: Female : 1930 Arrival Date: 08/30/2018 Time: 04:11 Bed 13 Private MD: Dagoberto Pleitez Diagnosis: Central dislocation of left hip-malposition of acetabular cup;Pain in left hip;Atrial fibrillation and flutter Presentation: 08/30 04:27 Presenting complaint: Patient states: left leg pain from buttocks to left knee since ak1 Tuesday08/25/18. pt having trouble standing and walking due to pain. pt has appointment with Dr. Pleitez this morning, due to increased pain could not wait. Transition of care: patient was not received from another setting of care. Onset of symptoms was August 23, 2018. Risk Assessment: Do you want to hurt yourself or someone else? Patient reports no desire to harm self or others. Initial Sepsis Screen: Does the patient meet any 2 criteria? No. Patient's initial sepsis screen is negative. Does the patient have a suspected source of infection? No. Patient's initial sepsis screen is negative. Care prior to arrival: ibuprofen at 0200. 04:27 Method Of Arrival: Wheelchair ak1 04:27 Acuity: SARIKA 4 ak1 Triage Assessment: 04:30 General: Appears uncomfortable, slender, well groomed, Behavior is calm, cooperative. ak1 Pain: Complains of pain in left leg. EENT: No signs and/or symptoms were reported regarding the EENT system. Neuro: No deficits noted. Cardiovascular: No deficits noted. Respiratory: No deficits noted. GI: No signs and/or symptoms were reported involving the gastrointestinal system. : No signs and/or symptoms were reported regarding the genitourinary system. Derm: No signs and/or symptoms reported regarding the dermatologic system. Musculoskeletal: Range of motion: limited in left hip and left knee Reports pain in left leg since 08/25/18. pt denies injury to left leg. pt with hx siatica. 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 - Social history:: Smoking status: unknown. - Ebola Screening: : No symptoms or risks identified at this time. - Family history:: not pertinent. Screenin:33 Abuse screen: Denies threats or abuse. Denies injuries from another. Nutritional ak1 screening: No deficits noted. Tuberculosis screening: No symptoms or risk factors identified. Fall Risk None identified. Assessment: 05:00 General: Appears uncomfortable, Behavior is calm, cooperative, appropriate for age. ea Pain: Complains of pain in pelvis and left knee and left hip and left leg. Neuro: Level of Consciousness is awake, alert, obeys commands, Oriented to person, place, time, situation. Cardiovascular: Patient's skin is warm and dry. Respiratory: Airway is patent Respiratory effort is even, unlabored, Respiratory pattern is regular, symmetrical. Derm: Skin is pink, warm \\T\\ dry. Musculoskeletal: Range of motion: limited in left leg. 06:46 Reassessment: Patient and/or family updated on plan of care and expected duration. Pain ea level reassessed. Patient is alert, oriented x 3, equal unlabored respirations, skin warm/dry/pink. 08:14 Reassessment: Patient appears in no apparent distress at this time. Patient and/or tw2 family updated on plan of care and expected duration. Pain level reassessed. Patient is alert, oriented x 3, equal unlabored respirations, skin warm/dry/pink. Vital Signs: 04:27 BP 155 / 86; Pulse 84; Resp 18; Temp 98.6(TE); Pulse Ox 96% on R/A; Weight 40.82 kg ak1 (R); Height 4 ft. 11 in. (149.86 cm) (R); Pain 8/10; 06:47 BP 150 / 80; Pulse 80; Resp 18; Pulse Ox 97% on R/A; ea 08:14 BP 141 / 87; Pulse 77; Resp 17; Pulse Ox 95% on R/A; tw2 04:27 Body Mass Index 18.18 (40.82 kg, 149.86 cm) ak1 ED Course: 04:11 Patient arrived in ED. es 04:11 Dagoberto Pleitez is Private Physician. es 04:29 Triage completed. ak1 04:32 Arm band placed on Patient placed in an exam room, on a stretcher, on pulse oximetry, ak1 Patient notified of wait time. 04:33 Patient has correct armband on for positive identification. Bed in low position. Call ak1 light in reach. Side rails up X2. Adult w/ patient. Pulse ox on. NIBP on. 04:43 Vance Rodriguez MD is Attending Physician. madonna 05:17 Christie Coelho, RN is Primary Nurse. ea 06:27 X-ray completed. Patient tolerated procedure well. kw 06:27 Radiology exam delayed due to PROCESSOR IN RAD DEPT DOWN. kw 06:29 Lumbar Spine (3 Views) XRAY In Process Unspecified. EDMS 06:29 Pelvis XRAY In Process Unspecified. EDMS 06:29 Hip Left 2 View XRAY In Process Unspecified. EDMS 06:29 Femur Left XRAY In Process Unspecified. EDMS 06:40 Inserted saline lock: 20 gauge in right forearm, using aseptic technique. Blood ea collected. 07:22 Primary Nurse role handed off by Christie Coelho, TARUN tw2 07:22 Nicky Barajas, TARUN is Primary Nurse. tw2 07:23 transfer approval from receiving facility. tw2 07:27 XRAY Chest (1 view) In Process Unspecified. EDMS 07:35 No provider procedures requiring assistance completed. Patient transferred, IV remains tw2 in place. Administered Medications: No medications were administered Outcome: 06:59 ER care complete, transfer ordered by . madonna 08:14 Transferred by ground EMS to [facility]. tw2 08:14 Condition: stable 08:14 Instructed on the need for transfer. 08:15 Patient left the ED. tw2 Signatures: Dispatcher [employer] EDVance Cordero MD MD cha Salyer, Edna es Whitley, Kimberlee kw Krenek, Sendy, RN RN ak1 Nicky Barajas, RN RN tw2 Christie Coelho, RN RN ea
[2018-08-30 07:07] LABS: Absolute Lymphocytes (CBC) 0.9 K/uL (0.7-4.9); Absolute Monocytes 0.6 K/uL (0.1-1.3); Absolute Neutrophil 4.7 K/uL (1.8-8.0); Basophils % 0.9 % (0-1.3); Eosinophils % 2.2 % (0-4.4); Hematocrit 40.3 % (36.0-45.0); Lymphocytes % 14.5 % (15.3-44.8); MPV 8.5 fL (7.6-11.3); Monocytes % 9.3 % (3.3-12.3); RBC Red Blood Cell Count 4.36 M/uL (3.86-4.86)
[2018-08-30 07:08] LABS: Protime INR 0.96
[2018-08-30 07:15] LABS: ALT/SGPT 20 U/L (12-78); AST/SGOT 25 U/L (15-37); Albumin 3.8 g/dL (3.4-5.0); Alkaline Phosphatase 136 U/L (45-117); BUN Blood Urea Nitrogen 26 mg/dL (7-18); Bicarbonate 31 mmol/L (21-32); Bilirubin Direct 0.2 mg/dL (0-0.2); Bilirubin Total 0.5 mg/dL (0.2-1.0); Glucose Level 91 mg/dL (74-106); Magnesium 2.2 mg/dL (1.8-2.4); NT PRO-BNP 1827 pg/mL (<450); Potassium 3.6 mmol/L (3.5-5.1); Protein, Total 7.3 g/dL (6.4-8.2); Sodium Level 142 mmol/L (136-145); Troponin (Emerg Dept Use Only) < 0.02 ng/mL (0.0-0.045)
--- NOTE | 2018-08-30 08:23 | RAD REPORT ---
EXAM DESCRIPTION: RAD - Lumbar Spine 3 Views - 08/30/2018 6:28 am CLINICAL HISTORY: Back pain, left lower extremity radiculopathy, difficulty walking, difficulty justus ding COMPARISON: None. FINDINGS: A three-view lumbar spine examination was performed. Lumbar bodies are normal in height and normal in AP alignment. There is a right lateral tilt of the l umbar spine. No compression fracture is present. No lytic, sclerotic or expansile bony destructive pr ocess. Disc space narrowing is present at all levels. This is most pronounced at L3-4 and L4-5. Promi nent endplate spurring changes seen at all levels. Prominent facet degenerative change at falls L4-5 and L5-S1. No pars defects identified. Bilateral hip prostheses in place only partially imaged. No presacral soft tissue thickening. SI join t degenerative changes are present. 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 No acute or destructive finding.
--- NOTE | 2018-08-30 08:26 | RAD REPORT ---
EXAM DESCRIPTION: RAD - Pelvis - 08/30/2018 6:28 am CLINICAL HISTORY: Pelvic pain, hip pain, left lower extremity radiculopathy COMPARISON: Pelvis March 2018 TECHNIQUE: AP imaging of the pelvis was obtained. FINDINGS: No fracture of the bony pelvis. There is remodeling around the left acetabulum from prior fracture repair. SI joint and lower lumbar degenerative changes are present only partially imaged. Right hip prosthesis shows no suspicious finding. No acute findings in the proximal right femur. The acetabular component of the left hip prosthesis has rotated 90 degrees medial are counterclockwis e. The superior aspect of the femoral component no longer articulates with the acetabular component. Complete dislocation of the femoral head is not confirmed. IMPRESSION: The left hip prosthesis acetabular component has rotated approximately 90 degrees in a m edial or counterclockwise rotation. The superior aspect of the femoral component is no longer articulating with the acetabular cup.
--- NOTE | 2018-08-30 08:28 | RAD REPORT ---
EXAM DESCRIPTION: RAD - Hip Left 2 View - 08/30/2018 6:28 am CLINICAL HISTORY: Pelvic pain, hip pain, left lower extremity radicular pain COMPARISON: No remote imaging FINDINGS: AP and frogleg views of the left hip were obtained. No fracture changes are identified. Th ere is bony remodeling of the left acetabulum and inferior pubic ramus from remote trauma. Acetabular component of the hip prosthesis has rotated 90 degrees in a medial or counterclockwise rot ation. Superior aspect of femoral component no longer articulates with the acetabular cup. Femoral di slocation is not confirmed at this time. No soft tissue abnormality. IMPRESSION: Approximately 90 degree medial or counterclockwise rotation of the acetabular component uncovering the superior aspect of the femoral component.
--- NOTE | 2018-08-30 08:30 | RAD REPORT ---
EXAM DESCRIPTION: RAD - Chest Single View - 08/30/2018 7:26 am CLINICAL HISTORY: Cough, preop chest, left hip prosthesis abnormality COMPARISON: March 2018 TECHNIQUE: AP portable chest image was obtained 0723 hours . FINDINGS: Baseline interstitial fibrotic pattern is present similar to comparison. No pulmonary michelle a, volume overload or acute lung parenchymal process. Heart size is normal and similar to comparison. No vascular engorgement. No measurable pleural effusion and no pneumothorax. Advanced thoracic spine degenerative change with no gross evidence for an acute process. Advanced shoulder joint degenerative changes are also presen t and stable. No acute aortic findings suspected. IMPRESSION: Fibrotic lung pattern similar to comparison. No acute finding.
--- NOTE | 2018-08-30 08:30 | RAD REPORT ---
EXAM DESCRIPTION: RAD - Femur Left - 08/30/2018 6:28 am CLINICAL HISTORY: Hip pain, pelvic pain, left lower extremity radiculopathy COMPARISON: Pelvis and hip films same date FINDINGS: Rotation abnormality of the acetabular cup detailed on separate imaging. No acute finding of the femoral component of the hip prosthesis. No subsidence or radiographic evidence for loosening. Osteopenic changes are present in the intertrochanteric region. No fracture or acute femur finding. Left knee prosthesis shows no acute finding. No radiographic evidence for loosening at the knee joint . No air or foreign body in the soft tissues. IMPRESSION: Left acetabular cup rotation abnormality is separately detailed. Femoral component and left femur show no suspicious findings. No abnormalities of the partially imaged left knee prosthesis.
--- NOTE | 2018-08-30 10:26 | EKG ---
Test Date: 2018-08-30 Test Time: 07:26:38 Food Service Coordinator: CASSIA MEASUREMENT RESULTS: Intervals: Rate: 82 [place]: 220 QRSD: 92 QT: 358 QTc: 418 [place]: P: 56 [place]: 220 QRS: -44 T: 15 INTERPRETIVE STATEMENTS: Sinus rhythm with 1st degree AV block Possible Left atrial enlargement Left axis deviation Left ventricular hypertrophy Abnormal ECG No previous ECG available for comparison Electronically Signed On 08-30-18 10:24:58 CDT by Kade Gilliam
== END 2018-08-30 08:15 | disposition short-term general hospital (02) ==
LOC: ER 04:06
DX: S73.045 Central dislocation of left hip (principal); T84.021A Dislocation of internal left hip prosthesis, initial encounter; I10 Essential (primary) hypertension; I48.91 Unspecified atrial fibrillation; I48.92 Unspecified atrial flutter; Z88.6 Allergy status to analgesic agent; X58.XXXA Exposure to other specified factors, initial encounter; Z88.8 Allergy status to other drugs, medicaments and biological substances
CPT/HCPCS: 36415; 71045; 72100; 72170; 80048; 80076; 83735; 83880; 84484; 85025; 85610; 93005; 99285

== ENCOUNTER 2019-02-14 09:36 | Inpatient (IN) | payer OTHER ==
[2019-02-14 10:33] LABS: Absolute Lymphocytes (CBC) 0.2 K/uL (0.7-4.9); Basophils % 0.1 % (0-1.3); Hematocrit 34.1 % (36.0-45.0); Lymphocytes % 2.1 % (15.3-44.8); MPV 7.9 fL (7.6-11.3); RBC Red Blood Cell Count 4.01 M/uL (3.86-4.86)
[2019-02-14 10:44] LABS: Protime INR 1.07
[2019-02-14 10:56] LABS: Albumin 3.2 g/dL (3.4-5.0); Bilirubin Direct 0.2 mg/dL (0-0.2); Bilirubin Total 0.8 mg/dL (0.2-1.0); Magnesium 1.7 mg/dL (1.8-2.4); Potassium 3.8 mmol/L (3.5-5.1); Protein, Total 6.1 g/dL (6.4-8.2); Troponin (Emerg Dept Use Only) 0.02 ng/mL (0.0-0.045)
--- NOTE | 2019-02-14 11:08 | RAD REPORT ---
EXAM DESCRIPTION: USExtrem Venous W Compress Bil02/14/2019 11:02 am CLINICAL HISTORY: Bilateral leg swelling COMPARISON: none FINDINGS: The common femoral, superficial femoral, popliteal and posterior tibial veins bilaterally are compressible and demonstrate augmentation. Doppler demonstrates good flow. IMPRESSION: No evidence of deep venous thrombosis involving either lower extremity.
--- NOTE | 2019-02-14 11:09 | RAD REPORT ---
EXAM DESCRIPTION: You Single View02/14/2019 10:52 am CLINICAL HISTORY: Chest pain COMPARISON: August 2018 FINDINGS: Mild bilateral pulmonary opacities. Small bilateral pleural effusions The heart is moderately enlarged IMPRESSION: CHF
[2019-02-14] MEDS ORDERED: FUROSEMIDE 40 MG/4 ML VIAL ONE (11:16)
--- NOTE | 2019-02-14 11:22 | ER ---
Nurse's Notes [facility] Name: Shasta Martinez Age: 88 yrs Sex: Female : 1930 Arrival Date: 02/14/2019 Time: 09:38 Bed 13 Private MD: Diagnosis: Hypo-osmolality and hyponatremia;Peripheral Edema, CHF Presentation: 02/14 09:59 Presenting complaint: Patient states: "I have been having chest discomfort like ca1 indigestion mostly on the center of my chest and little bit on the L side for about a week now. Both legs are swollen and my abdomen feels bloated. I have belly pain on the L side and I am sometimes nauseated. I am also short of breath at times but they are painting the house right now" Pt also reports she has gone from 90-95 lbs to 104lbs in a couple weeks. Transition of care: patient was not received from another setting of care. Onset of symptoms was February 14, 2019. Risk Assessment: Do you want to hurt yourself or someone else? Patient reports no desire to harm self or others. Initial Sepsis Screen: Does the patient meet any 2 criteria? No. Patient's initial sepsis screen is negative. Does the patient have a suspected source of infection? No. Patient's initial sepsis screen is negative. Care prior to arrival: None. 09:59 Method Of Arrival: Ambulatory ca1 09:59 Acuity: SARIKA 3 ca1 Triage Assessment: 10:07 General: Appears in no apparent distress. comfortable, Behavior is calm, cooperative, ca1 appropriate for age. Pain: Complains of pain in chest, left upper quadrant and left lower quadrant Pain currently is 3 out of 10 on a pain scale. Quality of pain is described as aching. EENT: No deficits noted. No signs and/or symptoms were reported regarding the EENT system. Neuro: Level of Consciousness is awake, alert, obeys commands, Oriented to person, place, time, situation, Appropriate for age. Cardiovascular: Heart tones S1 S2 present Capillary refill < 3 seconds Patient's skin is warm and dry. Pulses are all present. Edema is 1+ to left midcalf, left ankle, left foot, left toes, right midcalf, right ankle, right foot and right toes Rhythm is sinus rhythm. Respiratory: Airway is patent Respiratory effort is even, unlabored, Respiratory pattern is regular, symmetrical, Breath sounds are clear bilaterally. GI: Abdomen is round non-distended, Bowel sounds present X 4 quads. Abd is soft X 4 quads Abdomen is tender to palpation in left upper quadrant and left lower quadrant Reports nausea. : No deficits noted. No signs and/or symptoms were reported regarding the genitourinary system. Derm: Skin is intact, is healthy with good turgor, Skin is pink, warm \\T\\ dry. Musculoskeletal: Circulation, motion, and sensation intact. Capillary refill < 3 seconds, Range of motion: intact in all extremities, Swelling present in right foot, left foot, right leg and left leg. 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 - Social history:: Smoking status: Patient/guardian denies using tobacco. - Ebola Screening: : Patient negative for fever greater than or equal to 101.5 degrees Fahrenheit, and additional compatible Ebola Virus Disease symptoms Patient denies exposure to infectious person Patient denies travel to an Ebola-affected area in the 21 days before illness onset No symptoms or risks identified at this time. Screenin:11 Abuse screen: Denies threats or abuse. Denies injuries from another. Nutritional ca1 screening: No deficits noted. Tuberculosis screening: No symptoms or risk factors identified. Fall Risk Fall in past 12 months (25 points). IV access (20 points). Ambulatory Aid- Crutches/Cane/Walker (15 pts). Gait- Impaired (20 pts.). Total Mena Fall Scale indicates High Risk Score (45 or more points). Fall prevention measures have been instituted. Side Rails Up X 2 Family Present and informed to notify staff if the need to leave the bedside As available patient and family educated on Fall Prevention Program and Strategies. Assessment: 10:11 Reassessment: See TRIAGE ASSESSEMENT. Pain: Complains of pain in mid-sternal area and ca1 left breast Pain does not radiate. Pain currently is 2 out of 10 on a pain scale. Pain began a week ago Is intermittent. 11:32 Reassessment: Patient appears in no apparent distress at this time. Patient and/or ca1 family updated on plan of care and expected duration. Pain level reassessed. Patient is alert, oriented x 3, equal unlabored respirations, skin warm/dry/pink. Dr. Lees at bedside. 12:00 Reassessment: Patient appears in no apparent distress at this time. Patient and/or ca1 family updated on plan of care and expected duration. Pain level reassessed. Patient is alert, oriented x 3, equal unlabored respirations, skin warm/dry/pink. Vital Signs: 10:07 BP 131 / 89; Pulse 88; Resp 15 S; Temp 97.7(O); Pulse Ox 94% on R/A; Weight 47.17 kg ca1 (R); Height 4 ft. 11 in. (149.86 cm) (R); Pain 3/10; 10:43 BP 136 / 83; Pulse 81; Resp 27; Temp 97.8(O); Pulse Ox 95% on 1 lpm NC; mh5 11:30 BP 139 / 79; Pulse 73; Resp 16; Temp 97.5(O); Pulse Ox 93% on 1 lpm NC; mh5 10:07 Body Mass Index 21.01 (47.17 kg, 149.86 cm) ca1 ED Course: 09:38 Patient arrived in ED. as 09:48 Stewart Lawrence MD is Attending Physician. kdr 09:59 Maren Jay, TARUN is Primary Nurse. ca1 10:03 Triage completed. ca1 10:07 Arm band placed on right wrist. ca1 10:11 Patient has correct armband on for positive identification. Bed in low position. Call ca1 light in reach. Side rails up X 1. playground monitor on. Pulse ox on. NIBP on. Warm blanket given. 10:11 No provider procedures requiring assistance completed. Patient maintains SpO2 ca1 saturation greater than 95% on room air. 10:25 Initial lab(s) drawn, by me, sent to lab. Inserted saline lock: 20 gauge in right ca1 antecubital area, using aseptic technique. Blood collected. 11:02 XRAY Chest (1 view) In Process Unspecified. EDMS 11:07 US Extremity Venous W Compression Mason In Process Unspecified. EDMS 11:09 EKG done, by microwave radio technician. reviewed by Stewart Lawrence MD. at1 11:20 Jair Lees DO is Hospitalizing Provider. kdr 11:59 Patient admitted, IV remains in place. ca1 12:26 Urine collected: clean catch specimen, clear, Amount Voided: 130mL. ca1 Administered Medications: 11:31 Drug: Lasix 40 mg Route: IVP; Site: right antecubital; ca1 12:25 Follow up: Urine output 130 ml; Response: No adverse reaction ca1 Output: 12:25 Urine: 130ml; Total: 130ml. ca1 12:26 Urine: 130ml (Voided); Total: 260ml. ca1 Outcome: 11:21 Decision to Hospitalize by Provider. kdr 12:03 Admitted to Tele accompanied by tech, via wheelchair, room 402, with chart, Report ca1 called to TARUN Rosas 12:03 Condition: stable 12:03 Instructed on the need for admit. 12:28 Patient left the ED. ca1 Signatures: Dispatcher [employer] Stewart Moraes MD MD kdr Martinez, Amelia as Gonzales, Amanda, information specialist EKG [facility] Maren Jay, RN RN ca1
--- NOTE | 2019-02-14 11:22 | EDPHYS ---
Physician Documentation [facility] Name: Shasta Martinez Age: 88 yrs Sex: Female : 1930 Arrival Date: 02/14/2019 Time: 09:38 Bed 13 Private MD: ED Physician Stewart Lawrence HPI: 02/14 17:05 This 88 yrs old Female presents to ER via Ambulatory with complaints of Leg kdr Swelling, Chest Pain, Nausea. 17:05 The patient or guardian reports chest pain that is located primarily in the substernal kdr area, epigastric area. Onset: gradually, 1 week(s) ago, Pain has been intermittent and transient since onset. She also c/o lower extremity swelling as well and SOB with minor exertion. The pain does not radiate. Associated signs and symptoms: Pertinent positives: lower extremity swelling, shortness of breath. The chest pain is described as aching, dull, a heaviness, a pressure. Duration: The patient or guardian reports a single episode, that is now resolved, The patient or guardian reports multiple episodes, that are intermittent, that wax and wane, with no pattern. Modifying factors: The symptoms are alleviated by nothing. the symptoms are aggravated by exertion, movement, walking. Severity of pain: At its worst the pain was mild in the emergency department the pain is unchanged. The patient has not experienced similar symptoms in the past. 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 - Social history:: Smoking status: Patient/guardian denies using tobacco. - Ebola Screening: : Patient negative for fever greater than or equal to 101.5 degrees Fahrenheit, and additional compatible Ebola Virus Disease symptoms Patient denies exposure to infectious person Patient denies travel to an Ebola-affected area in the 21 days before illness onset No symptoms or risks identified at this time. ROS: 17:05 Constitutional: Negative for fever, chills, and weight loss, Eyes: Negative for injury, kdr pain, redness, and discharge, ENT: Negative for injury, pain, and discharge, Neck: Negative for injury, pain, and swelling, Abdomen/GI: Negative for abdominal pain, nausea, vomiting, diarrhea, and constipation, Back: Negative for injury and pain, : Negative for injury, bleeding, discharge, and swelling, Skin: Negative for injury, rash, and discoloration, Neuro: Negative for headache, weakness, numbness, tingling, and seizure activity. Psych: Negative for depression, anxiety, suicide ideation, homicidal ideation, and hallucinations, Allergy/Immunology: Negative for hives, rash, and allergies, Endocrine: Negative for neck swelling, polydipsia, polyuria, polyphagia, and marked weight changes, Hematologic/Lymphatic: Negative for swollen nodes, abnormal bleeding, and unusual bruising. 17:05 Cardiovascular: Positive for chest pain, edema, Negative for palpitations, paroxysmal nocturnal dyspnea. 17:05 Respiratory: Positive for shortness of breath, on exertion. Negative for hemoptysis, orthopnea. 17:05 MS/extremity: Positive for swelling, tenderness, warmth. Exam: 17:05 Constitutional: This is a well developed, well nourished patient who is awake, alert, kdr and in no acute distress. Head/Face: Normocephalic, atraumatic. Eyes: Pupils equal round and reactive to light, extra-ocular motions intact. Lids and lashes normal. Conjunctiva and sclera are non-icteric and not injected. Cornea within normal limits. Periorbital areas with no swelling, redness, or edema. Neck: Trachea midline, no thyromegaly or masses palpated, and no cervical lymphadenopathy. Supple, full range of motion without nuchal rigidity, or vertebral point tenderness. No Meningismus. Chest/axilla: Normal chest wall appearance and motion. Nontender with no deformity. No lesions are appreciated. Cardiovascular: Regular rate and rhythm with a normal S1 and S2. No gallops, murmurs, or rubs. Normal PMI, no JVD. No pulse deficits. Abdomen/GI: Soft, non-tender, with normal bowel sounds. No distension or tympany. No guarding or rebound. No evidence of tenderness throughout. Back: No spinal tenderness. No costovertebral tenderness. Full range of motion. Skin: Warm, dry with normal turgor. Normal color with no rashes, no lesions, and no evidence of cellulitis. Neuro: Awake and alert, GCS 15, oriented to person, place, time, and situation. Cranial nerves II-XII grossly intact. Motor strength 5/5 in all extremities. Sensory grossly intact. Cerebellar exam normal. Normal gait. Psych: Awake, alert, with orientation to person, place and time. Behavior, mood, and affect are within normal limits. 17:05 Respiratory: the patient does not display signs of respiratory distress, Respirations: normal, no acute changes, labored breathing, is not present, asymmetrical chest movement, is not seen, accessory muscle usage, is absent, grunting, is not present, paradoxical chest movement, is absent, prolonged exhalation, is not present, Breath sounds: rales, that are mild, are scattered, are located in both bases. Vital Signs: 10:07 BP 131 / 89; Pulse 88; Resp 15 S; Temp 97.7(O); Pulse Ox 94% on R/A; Weight 47.17 kg ca1 (R); Height 4 ft. 11 in. (149.86 cm) (R); Pain 3/10; 10:43 BP 136 / 83; Pulse 81; Resp 27; Temp 97.8(O); Pulse Ox 95% on 1 lpm NC; mh5 11:30 BP 139 / 79; Pulse 73; Resp 16; Temp 97.5(O); Pulse Ox 93% on 1 lpm NC; mh5 10:07 Body Mass Index 21.01 (47.17 kg, 149.86 cm) ca1 MDM: 11:21 Patient medically screened. kdr 17:05 Data reviewed: vital signs, nurses notes, lab test result(s), radiologic studies. kdr Counseling: I had a detailed discussion with the patient and/or guardian regarding: the historical points, exam findings, and any diagnostic results supporting the discharge/admit diagnosis, lab results, radiology results, the need for further work-up and treatment in the hospital. 02/14 10:13 Order name: Basic Metabolic Panel; Complete Time: 11: kdr 02/14 10:13 Order name: CBC with Diff kdr 02/14 10:13 Order name: LFT's; Complete Time: 11: kdr 02/14 10:13 Order name: Magnesium; Complete Time: 11: kdr 02/14 10:13 Order name: NT PRO-BNP; Complete Time: 11: kdr 02/14 10:13 Order name: PT-INR; Complete Time: 11: kdr 02/14 10:13 Order name: Troponin (emerg Dept Use Only); Complete Time: 11: kdr 02/14 10:13 Order name: XRAY Chest (1 view) kdr 02/14 10:13 Order name: EKG; Complete Time: 10:14 kdr 02/14 10:13 Order name: Cardiac monitoring; Complete Time: 10:13 kdr 02/14 10:13 Order name: EKG - Nurse/Tech; Complete Time: 10:13 kdr 02/14 10:13 Order name: US Extremity Venous W Compression Mason kdr 02/14 10:55 Order name: CBC Smear Scan EDMS 02/14 10:13 Order name: IV Saline Lock; Complete Time: 10:25 kdr 02/14 10:13 Order name: Labs collected and sent; Complete Time: 10:25 kdr 02/14 10:13 Order name: O2 Per Protocol; Complete Time: 10:13 kdr 02/14 10:13 Order name: O2 Sat Monitoring; Complete Time: 10:13 kdr 02/14 10:13 Order name: Urine Dipstick-Ancillary (obtain specimen); Complete Time: 12:22 kdr Administered Medications: 11:31 Drug: Lasix 40 mg Route: IVP; Site: right antecubital; ca1 12:25 Follow up: Urine output 130 ml; Response: No adverse reaction ca1 Disposition: 02/14/19 11:21 Hospitalization ordered by Jair Lees for Observation. Preliminary diagnosis are Hypo-osmolality and hyponatremia, Peripheral Edema, CHF. - Bed requested for Telemetry/MedSurg (observation). - Status is Observation. ca1 - Condition is Fair. - Problem is new. - Symptoms are unchanged. UTI on Admission? No Signatures: Dispatcher [employer] EDJulia Gerardo RN RN dw Stewart Lawrence MD MD [facility] Maren Jay RN RN ca1 Corrections: (The following items were deleted from the chart) 11:42 11:21 Hospitalization Ordered by Jair Lees DO for Observation. Preliminary dw diagnosis is Hypo-osmolality and hyponatremia; Peripheral Edema, CHF. Bed requested for Telemetry/MedSurg (observation). Status is Observation. Condition is Fair. Problem is new. Symptoms are unchanged. UTI on Admission? No. kdr 12:28 11:42 02/14/2019 11:21 Hospitalization Ordered by Jair Lees DO for Observation. ca1 Preliminary diagnosis is Hypo-osmolality and hyponatremia; Peripheral Edema, CHF. Bed requested for Telemetry/MedSurg (observation). Status is Observation. Condition is Fair. Problem is new. Symptoms are unchanged. UTI on Admission? No. dw
--- NOTE | 2019-02-14 11:50 | P.HP ---
Certification for Inpatient Patient admitted to: Observation With expected LOS: <2 Midnights Patient will require the following post-hospital care: None Practitioner: I am a practitioner with admitting privileges, knowledge of patient current condition, hospital course, and medical plan of care. Services: Services provided to patient in accordance with Admission requirements found in Title 42 Section 412.3 of the Code of Federal Regulations Patient History Date of Service: 02/14/19 Primary Care Provider: Dr. Pleitez Reason for admission: Shortness of breath, edema History of Present Illness: 88-year-old female presented to the emergency room with shortness of breath and edema. Patient with history of hypertension, atrial fibrillation not on chronic anti coagulation therapy, and GERD, Patient presented with shortness of breath. This has been occurring over the last 1-2 weeks. It got worse today. She also reported increasing edema to the lower extremities and feeling congested. She thought she had a cold at which point she increased her fluid intake. She reported some congestion. Shortness of breath got worse today. Patient had mild chest pain to the center of her chest. She denies fever, chills. Son reports that the patient has a history of atrial fibrillation previously on chronic anti coagulation therapy but this was discontinued due to GI bleed. She came to the ER for further evaluation. In the ER patient was evaluated. Vital signs stable. EKG showed no significant EKG changes. Chest x-ray showed volume overload suspect CHF. Venous Doppler negative. Sodium 125, potassium 3.8. BUN of 20, creatinine 0.8 with a GFR 67. Glucose 138. White count 10.7, hemoglobin 11.6. Platelet count 235. Troponin unremarkable. Magnesium 1[place] [address]. Patient was given IV Lasix in the emergency room. Patient admitted for further evaluation and treatment. When I saw the patient in the ER, she appeared stable. Son at bedside. Allergies oxycodone Allergy (Unverified 09/27/17 12:19) Unknown Penicillins Allergy (Unverified 09/27/17 12:19) Unknown "mycins" Allergy (Uncoded 09/27/17 12:19) Unknown IV contrast Allergy (Uncoded 10/20/17 07:18) Unknown Home medications list reviewed: Yes - Past Medical/Surgical History Diabetic: No -: Chronic atrial fibrillation not on chronic anti coagulation therapy -: Hypertension -: GERD -: History of GI bleed on chronic anti coagulation therapy -: Bilateral hip replacement with revision -: Left knee surgery -: Appendectomy -: Hysterectomy Psychosocial/ Personal History: Patient is a . She lives with her son. - Family History Father -: Heart disease (CHF), Hypertension - Social History Smoking Status: Never smoker Alcohol use: No CD- Drugs: No Caffeine use: Yes Place of Residence: Home Review of Systems General: Weakness, As per HPI Eyes: Unremarkable ENT: Unremarkable Respiratory: Shortness of Breath, SOB with Excertion, As per HPI Cardiovascular: Chest Pain, Palpitations, Edema, As per HPI Gastrointestinal: Unremarkable Genitourinary: Unremarkable Musculoskeletal: Pedal edema, As per HPI Integumentary: Unremarkable Neurological: Unremarkable Lymphatics: Unremarkable Physical Examination - Physical Exam General: Alert, In no apparent distress, Oriented x3, Cooperative HEENT: Atraumatic, Normocephalic, Mucous membr. moist/pink Neck: Supple Respiratory: Crackles/rales (Crackles to the bases bilateral) Cardiovascular: Regular rate/rhythm Gastrointestinal: Normal bowel sounds, Soft and benign, Non-distended, No tenderness, No masses, No rebound, No guarding Musculoskeletal: No tenderness, No warmth Integumentary: Tenderness/swelling (1 to 2+ pitting edema to the lower extremities bilateral below the knees.) Neurological: Normal speech, Normal strength at 5/5 x4 extr, Normal tone, Normal affect - Studies Laboratory Data (last 24 hrs) 02/14/19 10:22: PT 12.6 H, INR 1.07 02/14/19 10:22: WBC 10.7, Hgb 11.6 L, Hct 34.1 L, Plt Count 235 02/14/19 10:22: Sodium 125 L, Potassium 3.8, BUN 20 H, Creatinine 0.81, Glucose 138 H, Magnesium 1.7 L, Total Bilirubin 0.8, AST 44 H, ALT 68, Alkaline Phosphatase 102 Assessment and Plan - Plan Impression: Shortness of breath and lower extremity edema secondary to acute on chronic CHF likely diastolic Hyponatremia likely related to above Hypomagnesia Chronic atrial fibrillation not on chronic anti coagulation therapy Hypertension GERD Plan: Shortness of breath and lower extremity edema secondary to acute on chronic CHF likely diastolic: Patient will admitted for observation and treatment. Will continue with IV Lasix and diuresis. Will monitor strict in and out closely. Will monitor daily weights. Will obtain echocardiogram to further evaluate for CHF. Recheck chest x-ray tomorrow. Will teach on CHF. Consult cardiology to further evaluate, await recommendation. Continue with a 1500 cc per day fluid restriction. Will recheck lab in the morning. Electrolyte protocol in place. Will maintain sats above 93%. Anticipate discharge likely tomorrow with clinical improvement. Hyponatremia likely related to above: Continue with diuresis. Will monitor lab closely. Hypomagnesia: Electrolyte protocol in place. Continue to monitor closely. Chronic atrial fibrillation not on chronic anti coagulation therapy: Will provide DVT prophylaxis. Restart diltiazem but will need to verify dosage and frequency. Continue aspirin at this time. Patient not on chronic anti coagulation therapy due to history of GI bleed. Hypertension: Continue with losartan and diltiazem. Will need to verify home medication. Will monitor and adjust appropriately. GERD: Restart Protonix. Discharge Plan: Home Plan to discharge in: 24 Hours - Advance Directives Does patient have a Living Will: No Does patient have a Durable POA for Healthcare: No - Code Status/Comfort Care Code Status Assessed: Yes (Patient is do not resuscitate.) Time Spent Managing Pts Care (In Minutes): 55
[2019-02-14] MEDS ORDERED: ACETAMINOPHEN 500 MG TAB PO PRN (12:04)
[2019-02-14] MEDS ORDERED: ONDANSETRON 4 MG/2 ML VIAL IV PRN (12:04)
[2019-02-14] MEDS ORDERED: POTASSIUM CL SA 10 MEQ TAB PO ONE ×2 (12:07→13:30)
[2019-02-14] MEDS ORDERED: MAGNESIUM SULFATE 1 gm IVPB 1 GM/100 ML BAG IV ONE (12:10)
[2019-02-14 12:42] LABS: Blood Morphology Comment NOT SEEN (NOT SEEN); Platelet Estimate ADEQ; Urine White Blood Cell Casts OK
--- NOTE | 2019-02-14 12:46 | EKG ---
Test Date: 2019-02-14 Test Time: 10:12:10 Therapist Asst: CASSIA MEASUREMENT RESULTS: Intervals: Rate: 86 NE: 238 QRSD: 102 QT: 368 QTc: 440 [place]: P: 83 NE: 238 QRS: -38 T: 105 INTERPRETIVE STATEMENTS: Sinus rhythm with 1st degree AV block Left axis deviation Possible Anterior infarct, age undetermined Abnormal ECG Compared to ECG 08/30/2018 07:26:38 Myocardial infarct finding now present Left ventricular hypertrophy no longer present Electronically Signed On 02-14-19 12:45:42 ASSEMBLY LINE SUPERVISOR by Kade Gilliam
[2019-02-14] MEDS: PANTOPRAZOLE 40MG TABLET PO SCH (15:23)
[2019-02-14 15:38] LABS: Urine Appearance CLEAR; Urine Bilirubin NEGATIVE (NEG); Urine Blood NEGATIVE (NEG); Urine Color YELLOW; Urine Glucose NEGATIVE (NEG); Urine Protein NEGATIVE (NEG); Urine Specific Gravity <=1.005 (1.005-1.030); Urine Urobilinogen 0.2 mg/dL (0.2-1.0); Urine pH 5.5 (5.0-7.0)
[2019-02-14 15:51] LABS: CKMB Creatine Kinase MB 2.3 ng/mL (0.3-3.6); Troponin I 0.02 ng/mL (0.0-0.045)
[2019-02-14 16:01] LABS: Urine Bacteria <20 /HPF (<20); Urine Culture Reflex Order NOT NEEDED; Urine Mucus 1+ /HPF (NONE SEEN); Urine RBC <5 /HPF (NONE SEEN)
--- NOTE | 2019-02-14 16:51 | ECHO ---
HEIGHT: 4 ft 11 in WEIGHT: 107 lb 11.2 oz DATE OF STUDY: 02/14/[address]: Jair Lees DO 2-DIMENSIONAL: YES M.MODE: YES DOPPLER: YES COLOR FLOW: YES TDS: PORTABLE: DEFINITY: BUBBLE STUDY: DIAGNOSIS: EVALUATE CHF CARDIAC HISTORY: CATHERIZATION: NO SURGERY: NO PROSTHETIC VALVE: NO PACEMAKER: NO MEASUREMENTS (cm) DIASTOLIC (NORMALS) SYSTOLIC (NORMALS) IVSd 0.9 (0.6-1.2) LA Diam 3.4 (1.9-4.0) LVEF 25-29% LVIDd 4.8 (3.5-5.7) LVIDs 4.4 (2.0-3.5) %FS 8% LVPWd 0.9 (0.6-1.2) Ao Diam 2.7 (2.0-3.7) 2 DIMENSIONAL ASSESSMENT: RIGHT ATRIUM: NORMAL LEFT ATRIUM: NORMAL RIGHT VENTRICLE: NORMAL LEFT VENTRICLE: NORMAL TRICUSPID VALVE: NORMAL MITRAL VALVE: NORMAL PULMONIC VALVE: NORMAL AORTIC VALVE: NORMAL PERICARDIAL EFFUSION: NONE AORTIC ROOT: NORMAL LEFT VENTRICULAR WALL MOTION: GLOBAL HYPOKINESIS, SEVERE. DOPPLER/COLOR FLOW: MILD TRICUSPID REGURGITATION. MILD PULMONARY HYPERTENSION. ESTIMATED RIGHT VENTRICULAR SYSTOLIC PRESSURE 45 mmHg. TRACE AORTIC REGURGITATION. COMMENTS: DEPRESSED LEFT VENTRICULAR EJECTION FRACTION. TRACE AORTIC REGURGITATION. MILD TRICUSPID REGURGITATION. MILD PULMONARY HYPERTENSION. TECHNOLOGIST: ROZ CRUZ
[2019-02-14] MEDS ORDERED: FUROSEMIDE 20 MG/ 2ML VIAL IV SCH (17:00)
--- NOTE | 2019-02-14 17:43 | CON ---
History Of Present Illness: Ms. Martinez is 88. She came to the hospital with dyspnea, orthopnea, micah ght gain, and was found to have pulmonary edema on the chest x-ray. She has received diuretics and i s starting to feel better. She has a past history of atrial fibrillation and hypertension. Home med ications are not yet listed. Most of her medical care has been given to her in [place]. Her outpati ent medications included aspirin, losartan, diltiazem, Protonix. She spends most of her time in sinu s rhythm. She took Eliquis, but was unable to tolerate it. She had excessive bleeding and required a transfusion, not sure what the workup was done to identify the kind of or the source of bleeding, b ut in any event, she is not on Eliquis and we should not try to resume it. She is in sinus rhythm no w. I believe antiarrhythmic drug that she was given was diltiazem; she is still on that. Physical Examination: Vital Signs: 4 feet 11 inches, 107 pounds. Her baseline weight is more like 92 pounds. HEENT: Unremarkable. Lungs: Sparse basilar crackles. Heart: Regular rate and rhythm. No murmur or gallop. Abdomen: Soft. Extremities: Unremarkable. No edema, cyanosis, clubbing. Distal pulses palpable. Social History: Patient uses no tobacco, no alcohol or illegal drugs. Impression: She has volume overload. Probably, she eats a diet too high in sodium. She is not on a diuretic, so if we can get her to reduce her sodium intake on average and give her a diuretic to tonny e at home, we can probably avoid hospitalizations such as this. An echocardiogram is pending. GEOVANI/BRETT Voice ID: [id number] Report ID: [id number]
--- NOTE | 2019-02-14 19:13 | EKG ---
Test Date: 2019-02-14 Test Time: 15:31:38 Beam Press Operator: BHAVESH MEASUREMENT RESULTS: Intervals: Rate: 92 NV: 240 QRSD: 96 QT: 348 QTc: 430 [place]: P: 80 NV: 240 QRS: -36 T: 90 INTERPRETIVE STATEMENTS: Sinus rhythm with 1st degree AV block Left axis deviation Possible Anterior infarct, age undetermined Abnormal ECG Compared to ECG 02/14/2019 10:12:10 No significant changes Electronically Signed On 02-14-19 19:12:57 DOOR REPAIRER BUS by Jose Horne
[2019-02-14] MEDS: carvediloL 6.25 MG TAB PO SCH (21:00)
[2019-02-14] MEDS ORDERED: DILTIAZEM HCL 180 MG SR CAP PO SCH (21:00)
[2019-02-14] MEDS ORDERED: DILTIAZEM HCL PO SCH (21:00)
[2019-02-14 23:30] LABS: CKMB Creatine Kinase MB 1.3 ng/mL (0.3-3.6); Troponin I 0.03 ng/mL (0.0-0.045)
[2019-02-15 04:34] LABS: Absolute Lymphocytes (CBC) 0.6 K/uL (0.7-4.9); Basophils % 0.5 % (0-1.3); Hematocrit 34.6 % (36.0-45.0); MPV 8.2 fL (7.6-11.3)
[2019-02-15 06:11] LABS: Magnesium 1.9 mg/dL (1.8-2.4); Potassium 3.8 mmol/L (3.5-5.1); Thyroid Stimulating Hormone 0.561 uIU/mL (0.360-3.740)
[2019-02-15 06:34] VITALS: BMI 21.3
[2019-02-15] MEDS: PANTOPRAZOLE 40MG TABLET PO SCH (06:34)
[2019-02-15] MEDS ORDERED: POTASSIUM CL SA 10 MEQ TAB PO ONE (08:00)
[2019-02-15] MEDS: ENOXAPARIN 40 MG/0.4 ML SQ SCH (08:22)
[2019-02-15] MEDS: ASPIRIN EC 81 MG TAB PO SCH (08:23)
[2019-02-15] MEDS: carvediloL 6.25 MG TAB PO SCH (08:23)
[2019-02-15] MEDS ORDERED: LOSARTAN POTASSIUM 50 MG TABLET PO SCH (09:00)
[2019-02-15] MEDS ORDERED: FUROSEMIDE 20 MG TABLET PO SCH (09:00)
--- NOTE | 2019-02-15 10:05 | RAD REPORT ---
EXAM DESCRIPTION: RAD - Chest Pa And Lat (2 Views) - 02/15/2019 9:49 am CLINICAL HISTORY: Follow up CHF Chest pain. COMPARISON: Chest Single View dated 02/14/2019; Chest Single View dated 08/30/2018; Chest Single View dated 03/17/2018 FINDINGS: Bilateral pleural effusions are noted, small on the right and small to moderate on the lef t. Emphysematous changes are present with linear opacities in both lung bases. The heart is mildly en larged in size. Multilevel degenerative change throughout the thoracolumbar spine is seen.
--- NOTE | 2019-02-15 12:20 | P.PN ---
Subjective Date of Service: 02/15/19 Primary Care Provider: Dr. Pleitez Chief Complaint: Shortness of breath, edema Subjective: Other (Patient has improved. Some fatigue noted.) Physical Examination - Vital Signs Temperature: 97.3 F Blood Pressure: 107/62 Pulse: 73 Respirations: 19 Pulse Ox (%): 96 - Physical Exam General: Alert, In no apparent distress, Oriented x3, Cooperative HEENT: Atraumatic Neck: Supple Respiratory: Crackles/rales (Minimal crackles to the bases. Better aeration bilateral) Cardiovascular: Regular rate/rhythm Gastrointestinal: Normal bowel sounds, Soft and benign, Non-distended Musculoskeletal: No erythema, No tenderness, No warmth Integumentary: No tenderness/swelling Neurological: Normal speech, Normal strength at 5/5 x4 extr, Normal tone, Normal affect - Studies Laboratory Data (last 24 hrs) 02/15/19 03:56: Sodium 129 L, Potassium 3.8, BUN 20 H, Creatinine 0.88, Glucose 96, Magnesium 1.9, Triglycerides 44, Cholesterol 113, HDL Cholesterol 61 H, Cholesterol/HDL Ratio 1.85 02/15/19 03:56: WBC 7.2 D, Hgb 11.6 L, Hct 34.6 L, Plt Count 224 02/14/19 22:53: Troponin I 0.03 02/14/19 15:03: Troponin I 0.02 Medications List Reviewed: Yes Assessment & Plan Discharge Plan: Home Plan to discharge in: 24 Hours Physician Review Additional Text: Impression: Shortness of breath and lower extremity edema secondary to acute on chronic systolic CHF Hyponatremia likely related to above Hypomagnesia Chronic atrial fibrillation not on chronic anti coagulation therapy Hypertension GERD Plan: Shortness of breath and lower extremity edema secondary to acute on chronic systolic CHF: Ejection fraction 25%. Case discussed with cardiology. Medications have been adjusted. Diltiazem and losartan discontinued. Patient has been started on carvedilol. Will initiate Entresto as well. Will adjust both medications. Will decrease Lasix to 20 mg daily. Will have patient continue to work with physical therapy. Will check to see if the patient will need oxygen at discharge. Anticipate discharge tomorrow. Case discussed with patient and son. Patient may require home health and physical therapy discharge. Hyponatremia likely related to above: Continue with diuresis. Medication adjusted peer Will monitor lab closely. Hypomagnesia: Electrolyte protocol in place. Continue to monitor closely. Chronic atrial fibrillation not on chronic anti coagulation therapy: Continue with DVT prophylaxis. Diltiazem discontinued. This was replaced with carvedilol. Patient not on chronic anti coagulation therapy due to history of GI bleed. Hypertension: Medication has been adjusted. Losartan and diltiazem discontinued. Patient now on carvedilol and Entresto. Will monitor and adjust appropriately. GERD: Continue Protonix. Time Spent Managing Pts Care (In Minutes): 55
[2019-02-15] MEDS ORDERED: carvediloL 3.125 MG TAB PO SCH (21:00)
[2019-02-15] MEDS: SACUBITRIL/VALSARTAN 24/26 MG TAB PO SCH (21:00)
--- NOTE | 2019-02-16 | PN ---
Date of Progress Note: 02/15/2019 Ms. Martinez is 88, was admitted by Dr. Lees for congestive heart failure. Ms. Martinez is still very active, very intelligent, very alert and oriented. She lives at home. She is a do not resuscitate. She was found to have an ejection fraction of 25% to 29%, which is new. She needs to be on fluid re striction. She has already diuresed well. She feels better. She can go home on carvedilol, losarta n, Lasix, aspirin. She needs to get off her Cardizem, which she was taking. We will see her in the office later as an outpatient and follow up on her ejection fraction. She can go home whenever it is okay with Dr. Lees. GIOVANNA/BRETT Voice ID: [id number] Report ID: [id number]
[2019-02-16 05:25] LABS: Potassium 4.3 mmol/L (3.5-5.1)
[2019-02-16] MEDS: PANTOPRAZOLE 40MG TABLET PO SCH (05:48)
[2019-02-16] MEDS: ASPIRIN EC 81 MG TAB PO SCH (08:08)
[2019-02-16] MEDS: SACUBITRIL/VALSARTAN 24/26 MG TAB PO SCH (08:09)
[2019-02-16] MEDS: ENOXAPARIN 40 MG/0.4 ML SQ SCH (08:09)
[2019-02-16 08:10] VITALS: BP 129/72
[2019-02-16 08:45] VITALS: TEMP 97.5
[2019-02-16] MEDS ORDERED: ENSURE ENLIVE 237 ML CAN PO SCH (09:00)
[2019-02-16] MEDS ORDERED: FUROSEMIDE 20 MG TABLET PO SCH (09:00)
[2019-02-16] MEDS ORDERED: carvediloL 6.25 MG TAB PO SCH (09:00)
--- NOTE | 2019-02-16 10:45 | P.DS ---
Admission Date: 02/15/19 Discharge Date: 02/16/19 Primary Care Provider: Dr. Pleitez Disposition: ROUTINE DISCHARGE Discharge Condition: GOOD Reason for Admission: Shortness of breath, edema Consultations: Cardiology-Dr. Gilliam Procedures: ECHO: EF 25-29% LEFT VENTRICULAR WALL MOTION: GLOBAL HYPOKINESIS, SEVERE. DOPPLER/COLOR FLOW: MILD TRICUSPID REGURGITATION. MILD PULMONARY HYPERTENSION. ESTIMATED RIGHT VENTRICULAR SYSTOLIC PRESSURE 45 mmHg. TRACE AORTIC REGURGITATION. COMMENTS: DEPRESSED LEFT VENTRICULAR EJECTION FRACTION. TRACE AORTIC REGURGITATION. MILD TRICUSPID REGURGITATION. MILD PULMONARY HYPERTENSION. Follow up CXR: COMPARISON: Chest Single View dated 02/14/2019; Chest Single View dated 2018; Chest Single View dated 03/17/2018 FINDINGS: Bilateral pleural effusions are noted, small on the right and small to moderate on the left. Emphysematous changes are present with linear opacities in both lung bases. The heart is mildly enlarged in size. Multilevel degenerative change throughout the thoracolumbar spine is seen. Medical Problem List: Shortness of breath and lower extremity edema secondary to acute on chronic systolic CHF, ejection fraction 25-29% Hyponatremia likely related to above resolved Hypomagnesia resolved Chronic atrial fibrillation not on chronic anti coagulation therapy Hypertension GERD Brief History of Present Illness: 88-year-old female presented to the emergency room with shortness of breath and edema. Patient with history of hypertension, atrial fibrillation not on chronic anti coagulation therapy, and GERD, Patient presented with shortness of breath. This has been occurring over the last 1-2 weeks. It got worse today. She also reported increasing edema to the lower extremities and feeling congested. She thought she had a cold at which point she increased her fluid intake. She reported some congestion. Shortness of breath got worse today. Patient had mild chest pain to the center of her chest. She denies fever, chills. Son reports that the patient has a history of atrial fibrillation previously on chronic anti coagulation therapy but this was discontinued due to GI bleed. She came to the ER for further evaluation. In the ER patient was evaluated. Vital signs stable. EKG showed no significant EKG changes. Chest x-ray showed volume overload suspect CHF. Venous Doppler negative. Sodium 125, potassium 3.8. BUN of 20, creatinine 0.8 with a GFR 67. Glucose 138. White count 10.7, hemoglobin 11.6. Platelet count 235. Troponin unremarkable. Magnesium 1[place] [address]. Patient was given IV Lasix in the emergency room. Patient admitted for further evaluation and treatment. When I saw the patient in the ER, she appeared stable. Son at bedside. Hospital Course: Patient presented with shortness of breath and lower extremity edema to the lower extremity. Patient was seen and evaluated by Cardiology. Patient found to have acute on chronic systolic CHF with ejection fraction of 25%. Patient was given diuretic therapy. Medications were also adjusted. Patient has responded well to medical therapy. At discharge patient will continue with aspirin 81 mg daily, carvedilol 6.25 mg 1 pill twice daily, Entresto 24/26 mg 1 pill twice daily and Lasix 20 mg 1 pill daily. Patient will continue with a 1500 cc per day fluid restriction and low-salt diet. Patient is to monitor her weight daily. If her weight increases by more than 5 lb she is to contact cardiology or PCP to further address. Further adjustment in Lasix may be required. This can be done with the help of her mechanical maintenance foreman or PCP. Recommend follow up with cardiology in 1-2 weeks to follow up this hospitalization. Education on CHF will be provided. Home health and physical therapy will be arranged. Patient will be evaluated for the need of home oxygen. If required this will be arranged prior to discharge. Patient with chronic atrial fibrillation not on chronic anti coagulation therapy. Patient remained stable at this time. Medications have been adjusted due to her CHF. Patient will no longer take diltiazem. At discharge she will continue with aspirin 81 mg daily and carvedilol 6.25 mg 1 pill twice daily. Patient with hypertension. Medications have been adjusted due to her CHF. Patient will no longer take diltiazem and losartan. Patient currently on carvedilol 6.2 mg 1 pill twice daily and Entresto 24/26 mg 1 pill twice daily. Recommend to maintain blood pressures less 150/80. Further adjustment can be done by her PCP or cardiology. Patient with GERD. At discharge she will continue with Protonix 40 mg daily. Vital Signs/Physical Exam: Temp Pulse Resp BP Pulse Ox 97.5 F 86 18 129/72 95 02/16/19 08:00 02/16/19 08:08 02/16/19 08:00 02/16/19 08:08 02/16/19 08:00 General: Alert, In no apparent distress, Oriented x3, Cooperative HEENT: Atraumatic Neck: Supple Respiratory: Crackles/rales (Minimal crackles to the bases) Cardiovascular: Normal pulses, Regular rate/rhythm Gastrointestinal: Normal bowel sounds, Soft and benign, Non-distended, No tenderness, No masses, No rebound, No guarding Musculoskeletal: No erythema, No tenderness, No warmth Integumentary: No erythema, No warmth, No cyanosis Neurological: Normal speech, Normal strength at 5/5 x4 extr, Normal tone, Normal affect Laboratory Data at Discharge: WBC 7.2 K/uL (4.3-10.9) D 02/15/19 03:56 Hgb 11.6 g/dL (12.0-15.0) L 02/15/19 03:56 Hct 34.6 % (36.0-45.0) L 02/15/19 03:56 Plt Count 224 K/uL (152-406) 02/15/19 03:56 PT 12.6 SECONDS (9.5-12.5) H 02/14/19 10:22 INR 1.07 02/14/19 10:22 Sodium 134 mmol/L (136-145) L 02/16/19 04:25 Potassium 4.3 mmol/L (3.5-5.1) 02/16/19 04:25 BUN 21 mg/dL (7-18) H 02/16/19 04:25 Creatinine 0.94 mg/dL (0.55-1.3) 02/16/19 04:25 Glucose 83 mg/dL (74-106) 02/16/19 04:25 Magnesium 2.0 mg/dL (1.8-2.4) 02/16/19 04:25 Total Bilirubin 0.8 mg/dL (0.2-1.0) 02/14/19 10:22 AST 44 U/L (15-37) H 02/14/19 10:22 ALT 68 U/L (12-78) 02/14/19 10:22 Alkaline Phosphatase 102 U/L (45-117) 02/14/19 10:22 Troponin I 0.03 ng/mL (0.0-0.045) 02/14/19 22:53 Triglycerides 44 mg/dL (<150) 02/15/19 03:56 Cholesterol 113 mg/dL (<200) 02/15/19 03:56 HDL Cholesterol 61 mg/dL (40-60) H 02/15/19 03:56 Cholesterol/HDL Ratio 1.85 02/15/19 03:56 Home Medications: Aspirin 1 tab PO DAILY 02/14/19 Pantoprazole Sodium [Protonix] 1 tab PO DAILY 02/14/19 Carvedilol [Coreg*] 6.25 mg PO BID #60 tab 02/16/19 Ensure Enlive 237 ml PO DAILY #30 can 02/16/19 Furosemide [Lasix*] 20 mg PO DAILY #30 tab 02/16/19 Sacubitril/Valsartan [Entresto 24 mg-26 mg Tablet] 1 tab PO BID #60 tab New Medications: Carvedilol [Coreg*] 6.25 mg PO BID #60 tab Ensure Enlive 237 ml PO DAILY #30 can Furosemide [Lasix*] 20 mg PO DAILY #30 tab Sacubitril/Valsartan [Entresto 24 mg-26 mg Tablet] 1 tab PO BID #60 tab Patient Discharge Instructions: 1. Recommend follow up with her PCP in 1 week to follow up this hospitalization. 2. Patient presented with shortness of breath and lower extremity edema to the lower extremity. Patient was seen and evaluated by Cardiology. Patient found to have acute on chronic systolic CHF with ejection fraction of 25%. Patient was given diuretic therapy. Medications were also adjusted. Patient has responded well to medical therapy. At discharge patient will continue with aspirin 81 mg daily, carvedilol 6.25 mg 1 pill twice daily, Entresto 24/26 mg 1 pill twice daily and Lasix 20 mg 1 pill daily. Patient will continue with a 1500 cc per day fluid restriction and low-salt diet. Patient is to monitor her weight daily. If her weight increases by more than 5 lb she is to contact cardiology or PCP to further address. Further adjustment in Lasix may be required. This can be done with the help of her mechanical maintenance foreman or PCP. Recommend follow up with cardiology in 1- 2 weeks to follow up this hospitalization. Education on CHF will be provided. Home health and physical therapy will be arranged. Patient will be evaluated for the need of home oxygen. If required this will be arranged prior to discharge. 3. Patient with chronic atrial fibrillation not on chronic anti coagulation therapy. Patient remained stable at this time. Medications have been adjusted due to her CHF. Patient will no longer take diltiazem. At discharge she will continue with aspirin 81 mg daily and carvedilol 6.25 mg 1 pill twice daily. 4. Patient with hypertension. Medications have been adjusted due to her CHF. Patient will no longer take diltiazem and losartan. Patient currently on carvedilol 6.2 mg 1 pill twice daily and Entresto 24/26 mg 1 pill twice daily. Recommend to maintain blood pressures less 150/80. Further adjustment can be done by her PCP or cardiology. 5. Patient with GERD. At discharge she will continue with Protonix 40 mg daily. Diet: AHA Activity: Fall precautions Time spent managing pt's care (in minutes): 55
[2019-02-16 11:38] LABS: C.diff Antigen/Toxin Ag neg : Tox neg (NEG : NEG)
[2019-02-16 14:35] VITALS: O2SAT 96
--- OUTSIDE RECORDS SUMMARY | 2019-02-19 00:44 | XMS REPORT ---
:1930 [facility] Address [address] [place] [address] Dr. Escamilla [address] [place] [id number] Care Team Providers Name Role Phone Unavailable Unavailable Unavailable Problems This patient has no known problems. Allergies, Adverse Reactions, Alerts This patient has no known allergies or adverse reactions. Medications This patient has no known medications. Encounters Start End Encounter Admission Attending Care Care Encounter Date/Time Date/Time Type Type Clinicians Facility Department ID 2018-09-11 Inpatient [facility] [id number] 12:36:18 2018-09-11 Outpatient [facility] [id number] 10:55:08 2018-09-07 2018-09-07 Outpatient [facility] [id number] 05:31:00 05:31:00 2018-08-30 2018-08-30 Emergency E [facility] [id number] 07:31:00 07:31:00
--- OUTSIDE RECORDS SUMMARY | 2019-02-19 00:44 | XMS REPORT | Summary of Care ---
:1930 Author Name HIRO BUTLER M.D. Address Unavailable Unavailable , Care Team Providers Name Role Phone HIRO BUTLER M.D. 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 Start : 09-Oct-2018 Active Pantoprazole Sodium TBEC Refills: 0 Active Losartan Potassium TABS Refills: 0 Active Cartia XT 180 MG Oral Capsule Extended Release 24 Hour Refills: 0 Active Aspirin 81 TBEC Refills: 0 Active IBU TABS Refills: 0 Active Magnesium TABS Refills: 0 Active Calcium TABS Refills: 0 Active Allergies and Adverse Reactions Name Dates Details Benadryl (Allergy) Status: Active oxycodone (Allergy) Status: Active Penicillins (Allergy) Status: Active Past Medical History Name Dates Details History of acute renal failure (V13.09, Z87.448) Status: Resolved History of atrial fibrillation (V12.59, Z86.79) Status: Resolved History of hypertension (V12.59, Z86.79) Status: Resolved Procedures Procedure Dates Details History of Hysterectomy Completed History of Appendectomy Completed History of Hip replacement Completed History of Knee replacement Completed Immunization Name Dates Details Immunizations not documented Family History Name Dates Details Family history of hypertension (V17.49, Z82.49) Status: Active Family history of diabetes mellitus (V18.0, Z83.3) Status: Active Name Dates Details Family history of Parkinson disease, symptomatic (332.0, G20) Status: Active Name Dates Details Family history of malignant neoplasm of breast (V16.3, Z80.3) Status: Active Name Dates Details Family history of malignant neoplasm (V16.9, Z80.9) Status: Active Social History Name Dates Details - Status: Name Dates Details Never smoker Vital Signs Date Test Result Details [id number] Height 59 in Status: Results Date Description Value Details [id number] [U] XRAY HIP UNILATERAL MIN 2 VWS LEFT [id number] XR HIP UNILATERAL MIN 2 VWS LEFT Images acquired, not reported on this accession number. Plan of Care Name Dates Details Planned Observations Planned Goals not documented Planned Encounters Appointment; HIRO BUTLER M.D. On: 20-Sep-2019 9:15 Interventions Provided Labs/Procedures/Imaging[U] XRAY HIP UNILATERAL MIN 2 VWS LEFT [id number]; Done: 21 Dec 2018Tobacco Use Screening; Done: 21 Dec 2018PlanA 8-year-old female 3 months status post revision acetabular component doing well. She can continue weightbearing as tolerated. Continue hip precautions. Continue walker for support. I gave her reassurance that it would take as long time for her to become stronger however I think she will continue to improve. She has no pain she is happy with the hip. She will follow-up in 1 year time. Instructions Name Dates Details Instructions not documented Encounters Appointment; HIRO BUTLER M.D. On: 01-Sep-2018 8:30 Encounter Diagnosis: Problem not documented Appointment; HIRO BUTLER M.D. On: 05-Oct-2018 13:30 Encounter Diagnosis: Problem not documented Appointment; HIRO BUTLER M.D. On: 09-Oct-2018 14:00 Encounter Diagnosis: Problem not documented Appointment; HIRO BUTLER M.D. On: 09-Nov-2018 9:15 Encounter Diagnosis: Problem not documented Appointment; HIRO BUTLER M.D. On: 21-Dec-2018 9:15 Encounter Diagnosis: Problem not documented
== END 2019-02-16 16:25 | disposition home or self-care (01) | DRG 292 ==
LOC: ER 09:36 → ERHOLD 11:33 → 4TH 12:05 → OBSVTOIN 02-15 08:09
PROVIDERS: ADMIT Family Medicine; ATTEND Family Medicine
DX: I11.0 Hypertensive heart disease with heart failure (principal); E87.1 Hypo-osmolality and hyponatremia; I48.20 Chronic atrial fibrillation, unspecified; I50.23 Acute on chronic systolic (congestive) heart failure; E83.42 Hypomagnesemia; K21.9 Gastro-esophageal reflux disease without esophagitis; Z66 Do not resuscitate; Z88.0 Allergy status to penicillin; Z96.643 Presence of artificial hip joint, bilateral
CPT/HCPCS: 36415; 71045; 71046; 80048; 80061; 80076; 81001; 82550; 82553; 83735; 83880; 84439; 84443; 84484; 85025; 85610; 87324; 87449; 93005; 93306; 93970; 96374; 97116; 97161; 99285; G0378; J1650; J1940; J3475

== ENCOUNTER 2019-06-22 13:35 | Inpatient (IN) | payer OTHER ==
--- OUTSIDE RECORDS SUMMARY | 2019-06-22 13:37 | XMS REPORT ---
:1930 [facility] Address [address] [place] [address] Care Team Providers Name Role Phone Unavailable Unavailable Unavailable Problems This patient has no known problems. Allergies, Adverse Reactions, Alerts This patient has no known allergies or adverse reactions. Medications This patient has no known medications. Encounters Start End Encounter Admission Attending Care Care Encounter Date/Time Date/Time Type Type Clinicians Facility Department ID 2018-09-11 Inpatient [facility] [id number] 12:36:18 2018-09-11 Outpatient [facility] [id number] 10:55:08 2018-09-07 2018-09-07 Outpatient [facility] [id number] 05:31:00 05:31:00 2018-08-30 2018-08-30 Emergency [facility] [id number] 07:31:00 07:31:00
[2019-06-22 14:51] LABS: Absolute Lymphocytes (CBC) 0.2 K/uL (0.7-4.9); Basophils % 0.2 % (0-1.3); Hematocrit 36.1 % (36.0-45.0); Lymphocytes % 8.7 % (15.3-44.8); MPV 9.7 fL (7.6-11.3); RBC Red Blood Cell Count 3.77 M/uL (3.86-4.86)
[2019-06-22] MEDS ORDERED: MORPHINE 2 MG/ML SYR ONE (14:52)
[2019-06-22] MEDS ORDERED: ONDANSETRON 4 MG/2 ML VIAL ONE (14:53)
--- NOTE | 2019-06-22 15:00 | RAD REPORT ---
EXAM DESCRIPTION: CT - Abdomen Pelvis Wo Contrast - 06/22/2019 2:40 pm CLINICAL HISTORY: ABD PAIN COMPARISON: No comparisons TECHNIQUE: Axial [address] imaging of the abdomen and pelvis was performed without IV contrast. No IV contrast was given because of allergy, abnormal renal function, patient refusal or physician re quest. No oral contrast administered. All CT scans are performed using dose optimization technique as appropriate and may include automated exposure control or mA/KV adjustment according to patient size. FINDINGS: Moderate bilateral pleural effusions and lower lobe atelectasis present. Cardiomegaly is p resent without pericardial effusion. Patient has a very pronounced fluid retention pattern throughout the subcutaneous fatty tissues of th e abdomen, pelvis and lower chest. Bilateral hip prostheses are in place in this creates a very subst antial spray artifact that limits assessment of the lower half of the pelvis. The liver, spleen and pancreas show no suspicious findings on non-contrast imaging. No biliary tree d ilatation. Gallbladder is poorly visualized. No cholecystectomy clips are seen. Gallbladder is probab ly partially contracted and isodense to the surrounding tissues. No hydronephrosis of the right kidney identified. No obstructing calculi. Right kidney appears atroph ic. There is a probable upper pole cyst approximately 3 cm in size. Adrenal assessment is very limit ed. Isodense renal masses and pyelonephritis cannot be excluded in the absence of IV contrast. Urinar y bladder is contracted around a De Oliveira catheter. Uterus and ovaries cannot be assessed is still prese nt. Stomach is distended. Retained food and fluid are present. Gastric wall thickening. Air and stool are present in the colon which does not appear to be dilated. There is evidence for diverticulosis. Asci niles is present. There is congested or edematous appearance to the peritoneal and retroperitoneal fatt y tissues. The anasarca pattern along with absent oral and IV contrast creates very limited tissue plane separat ion in the peritoneal and retroperitoneal spaces. Small bowel does not appear to be dilated. No pneum atosis suspected. There are several small air densities anteriorly along the deep margin of the abdom inal wall. These punctate air collections are questionable for extraluminal air. There is no focal ai r collection that is in a location that is definitive for free air. Source for any free air is not ev ident on this examination. No hernia, mass or bulky lymphadenopathy. No omental thickening. Disc and bony degenerative changes are present. IMPRESSION: Anasarca pattern is present with pronounced fluid retention in the subcutaneous fatty ti ssues along with ascites, peritoneal fat congestion and bilateral pleural effusions. Peritoneal and retroperitoneal assessment is very limited due to the isodense or near isodense soft t issues. Patient has multiple small air densities anteriorly along the deep margin of the anterior abdominal w all. Several of these are concerning for extraluminal free air. A source for free air is not evident. Full assessment is limited is the absence of IV contrast.
[2019-06-22 15:05] LABS: Albumin 2.9 g/dL (3.4-5.0); Bilirubin Direct 0.4 mg/dL (0-0.2); Potassium 3.4 mmol/L (3.5-5.1); Protein, Total 5.9 g/dL (6.4-8.2)
[2019-06-22 15:20] LABS: Blood Morphology Comment NOT SEEN (NOT SEEN); Platelet Estimate ADEQ
[2019-06-22] MEDS ORDERED: Levofloxacin500mg IV 500 MG/100 ML BAG IV ONE (15:23)
[2019-06-22] MEDS ORDERED: CLINDAMYCIN 600MG/D5W 600 MG/50 ML BAG IV ONE (15:23)
[2019-06-22] MEDS ORDERED: METRONIDAZOLE 500mg IVPB 500 MG/100 ML BAG IV ONE (15:35)
--- NOTE | 2019-06-22 16:03 | ER ---
Nurse's Notes [facility] Name: Shasta Martinez Age: 89 yrs Sex: Female : 1930 Arrival Date: 06/22/2019 Time: 13:45 Bed 16 Private MD: Diagnosis: Abdominal and pelvic pain;Abdominal Free Air, Performated Bowel;Ascites Presentation: 06/21 13:50 Chief complaint: EMS states: Pt reports abdominal pain and 1 episode of diarrhea. ae4 Coronavirus screen: The patient has NOT traveled to a country currently being monitored by the [facility] within the last 14 days. Proceed with normal triage procedures. The patient has NOT had contact with any known and/or suspected case of coronavirus. Proceed with normal triage procedures. Ebola Screen: Patient denies travel to an Ebola-affected area in the 21 days before illness onset. No symptoms or risks identified at this time. Initial Sepsis Screen: Does the patient meet any 2 criteria? No. Patient's initial sepsis screen is negative. 13:50 Method Of Arrival: EMS: [facility] ae4 13:50 Acuity: SARIKA 3 ae4 13:57 Initial Sepsis Screen:. Risk Assessment: Do you want to hurt yourself or someone else? ae4 Patient reports no desire to harm self or others. 21:19 Initial Sepsis Screen: Does the patient have a suspected source of infection? No. lw1 Patient's initial sepsis screen is negative. Triage Assessment: 16:41 General: Appears. ae4 Historical: - Allergies: 13:54 "mycins"; ae4 13:54 Oxycodone; ae4 13:54 Benadryl; ae4 13:54 Eliquis; ae4 13:54 IV contrast; ae4 13:54 PENICILLINS; ae4 13:54 Toradol; ae4 - Immunization history:: Adult Immunizations up to date. - Social history:: Smoking status: Patient denies any tobacco usage or history of. Screenin:55 Abuse screen: Denies threats or abuse. Denies injuries from another. Nutritional ae4 screening: No deficits noted. Tuberculosis screening: No symptoms or risk factors identified. Fall Risk Secondary diagnosis (15 points) dementia. Assessment: 13:45 General: Appears in no apparent distress. comfortable, Behavior is calm, cooperative. ae4 Pain: Complains of pain in abdomen. Neuro: Level of Consciousness is awake, alert, obeys commands, Oriented to person, place. Cardiovascular: Heart tones S1 S2 present Patient's skin is warm and dry. Rhythm is regular. Respiratory: Airway is patent Respiratory effort is even, unlabored, Respiratory pattern is regular, symmetrical, Breath sounds are clear bilaterally. GI: Abd is soft X 4 quads Abdomen is tender to palpation X 4 quads. : De Oliveira in place Urine is clear, 100 mls dark yellow urine. EENT: No signs and/or symptoms were reported regarding the EENT system. Derm: Skin is pink, warm \\T\\ dry. Musculoskeletal: Swelling present in right foot, left foot, right leg, lateral aspect of left calf, left lateral ankle, lateral aspect of left foot, left calf, left Achilles, left heel, medial aspect of left calf, left medial ankle, medial aspect of left foot, left howard, anterior aspect of left ankle and dorsum of left foot. 15:00 Reassessment: Patient and/or family updated on plan of care and expected duration. Pain ae4 level reassessed. Reports pain decreased. 16:13 Reassessment: Patient is resting with eyes closed, respirations even and unlabored. IV ae4 medication infusing, IV site clean dr, and healthy. 16:39 Reassessment: Patient requested nurse call son. Spoke to Silviano Martinez, informed him ae4 patient will be admitted, Mr. Martinez states he is aware that mom is in hospital and will come visit at earliest convenience. 21:19 GI: Bowel sounds present X 4 quads. lw1 Vital Signs: 13:49 BP 134 / 69; Pulse 85; Resp 21; Temp 98.8(O); Pulse Ox 96% on 4 lpm NC; ae4 16:13 BP 100 / 54; Pulse 73; Resp 19; Pulse Ox 100% on R/A; ae4 20:06 BP 92 / 51; Pulse 65; Resp 20; Pulse Ox 100% on 2 lpm NC; Pain 0/10; lw1 21:18 BP 92 / 49; Pulse 67; Resp 20; Pulse Ox 94% on 2 lpm NC; Pain 0/10; lw1 22:08 BP 103 / 58; Pulse 72; Resp 20; Pulse Ox 99% on 2 lpm NC; Pain 0/10; lw1 ED Course: 13:45 Patient arrived in ED. ss 13:49 Roel Avalos, TARUN is Primary Nurse. ae4 13:50 Stewart Lawrence MD is Attending Physician. kdr 13:52 Triage completed. ae4 13:54 Arm band placed on left wrist. ae4 13:54 Bed in low position. Call light in reach. Side rails up X2. contract runner on. Pulse ae4 ox on. NIBP on. Warm blanket given. 14:41 Abdomen In Process Unspecified. EDMS 14:45 Inserted saline lock: 20 gauge in left upper arm, using aseptic technique. ae4 15:58 Preeti Hauser MD is Hospitalizing Provider. kdr 20:07 Primary Nurse role handed off by Roel Avalos RN lw1 20:07 Kelle Green RN is Primary Nurse. lw1 22:43 No provider procedures requiring assistance completed. IV is patent, is intact, Patient lw1 admitted, IV remains in place. No redness/swelling at site. Oxygen administration via nasal cannula \\T\\ 2L/min. Administered Medications: 14:53 Drug: Zofran (Ondansetron) 4 mg Route: IVP; Site: left upper arm; ae4 18:53 Follow up: Response: Nausea is decreased ae4 14:55 Drug: morphine 2 mg Route: IVP; Site: left upper arm; ae4 18:53 Follow up: Response: Pain is decreased ae4 15:27 Drug: LevaQUIN 500 mg Volume: 100 ml; Route: IVPB; Infused Over: 60 mins; Site: left ae4 upper arm; 16:35 Follow up: IV Status: Completed infusion ae4 16:08 Not Given (Physician Discretion): Clindamycin 600 mg IVPB once over 30 mins; (mix in 50 ae4 mL) 16:13 Drug: Flagyl 500 mg Volume: 100 ml; Route: IVPB; Rate: 200 ml/hr; Infused Over: 30 ae4 mins; Site: left upper arm; 16:44 Follow up: IV Status: Completed infusion ae4 21:45 Drug: NS 0.9% 250 ml Route: IV; Rate: bolus; Site: left antecubital; lw1 22:07 Follow up: Response: Blood pressure is elevated lw1 21:45 Drug: Albumin 12.5 grams Volume: 50 ml; Route: IVPB; Site: left antecubital; lw1 22:06 Follow up: Response: Blood pressure is elevated; IV Status: Completed infusion lw1 Outcome: 16:03 Decision to Hospitalize by Provider. kdr 22:45 Admitted to Med/surg via stretcher, room 212, with oxygen, Report called to primary lw1 nurse for 212 22:45 Condition: improved 22:47 Patient left the ED. lw1 Signatures: Dispatcher [employer] EDMS Stewart Lawrence MD MD kdr Smirch, Shelby, RN RN Roel Avalos RN RN ae4 Kelle Green RN RN lw1 Corrections: (The following items were deleted from the chart) 16:48 16:42 GI: ae4 ae4 22:09 20:06 BP 92 / 51; Pulse 65bpm; Resp 20bpm; Pulse Ox 100% RA; Pain 0/10; lw1 lw1 22:09 21:18 BP 92 / 49; Pulse 67bpm; Resp 20bpm; Pulse Ox 94% RA; Pain 0/10; lw1 lw1
--- NOTE | 2019-06-22 16:03 | EDPHYS ---
Physician Documentation [facility] Name: Shasta Martinez Age: 89 yrs Sex: Female : 1930 Arrival Date: 06/22/2019 Time: 13:45 Bed 16 Private MD: ED Physician Stewart Lawrence HPI: 06/21 16:03 This 89 yrs old Female presents to ER via EMS with complaints of Abdominal kdr Pain. 16:03 The patient presents with abdominal pain that is diffuse. Onset: The symptoms/episode kdr began/occurred gradually, 1-2 days. The symptoms do not radiate. Associated signs and symptoms: Pertinent positives: may have had bloody stool but it is unclear at this time. The symptoms are described as achy, constant, steady, vague. Modifying factors: The symptoms are alleviated by nothing, remaining still, the symptoms are aggravated by movement, touching the area. Severity of pain: At its worst the pain was mild moderate just prior to arrival, in the emergency department the pain is unchanged. The patient has not experienced similar symptoms in the past. The patient has not recently seen a physician. Historical: - Allergies: 13:54 "mycins"; ae4 13:54 Oxycodone; ae4 13:54 Benadryl; ae4 13:54 Eliquis; ae4 13:54 IV contrast; ae4 13:54 PENICILLINS; ae4 13:54 Toradol; ae4 - Immunization history:: Adult Immunizations up to date. - Social history:: Smoking status: Patient denies any tobacco usage or history of. ROS: 16:03 Constitutional: Negative for fever, chills, and weight loss, Eyes: Negative for injury, kdr pain, redness, and discharge, ENT: Negative for injury, pain, and discharge, Neck: Negative for injury, pain, and swelling, Cardiovascular: Negative for chest pain, palpitations, and edema, Respiratory: Negative for shortness of breath, cough, wheezing, and pleuritic chest pain, Back: Negative for injury and pain, : Negative for injury, bleeding, discharge, and swelling, MS/Extremity: Negative for injury and deformity, Skin: Negative for injury, rash, and discoloration, Neuro: Negative for headache, weakness, numbness, tingling, and seizure activity. Psych: Negative for depression, anxiety, suicide ideation, homicidal ideation, and hallucinations, Allergy/Immunology: Negative for hives, rash, and allergies, Endocrine: Negative for neck swelling, polydipsia, polyuria, polyphagia, and marked weight changes, Hematologic/Lymphatic: Negative for swollen nodes, abnormal bleeding, and unusual bruising. 16:03 Abdomen/GI: Positive for abdominal pain, nausea, rectal bleeding, Negative for diarrhea, constipation, abdominal cramps. Exam: 16:03 Constitutional: This is a well developed, well nourished patient who is awake, alert, kdr and in no acute distress. Head/Face: Normocephalic, atraumatic. Eyes: Pupils equal round and reactive to light, extra-ocular motions intact. Lids and lashes normal. Conjunctiva and sclera are non-icteric and not injected. Cornea within normal limits. Periorbital areas with no swelling, redness, or edema. Neck: Trachea midline, no thyromegaly or masses palpated, and no cervical lymphadenopathy. Supple, full range of motion without nuchal rigidity, or vertebral point tenderness. No Meningismus. Chest/axilla: Normal chest wall appearance and motion. Nontender with no deformity. No lesions are appreciated. Cardiovascular: Regular rate and rhythm with a normal S1 and S2. No gallops, murmurs, or rubs. Normal PMI, no JVD. No pulse deficits. Respiratory: Lungs have equal breath sounds bilaterally, clear to auscultation and percussion. No rales, rhonchi or wheezes noted. No increased work of breathing, no retractions or nasal flaring. Back: No spinal tenderness. No costovertebral tenderness. Full range of motion. Skin: Warm, dry with normal turgor. Normal color with no rashes, no lesions, and no evidence of cellulitis. MS/ Extremity: Pulses equal, no cyanosis. Neurovascular intact. Full, normal range of motion. Neuro: Awake and alert, GCS 15, oriented to person, place, time, and situation. Cranial nerves II-XII grossly intact. Motor strength 5/5 in all extremities. Sensory grossly intact. Cerebellar exam normal. Normal gait. Psych: Awake, alert, with orientation to person, place and time. Behavior, mood, and affect are within normal limits. 16:03 Abdomen/GI: Inspection: abdomen appears normal, obese Bowel sounds: diminished, in all quadrants, Palpation: soft, moderate abdominal tenderness, in the suprapubic area, right lower quadrant and left lower quadrant, mass, that is tender, Feels like distended bladder, Rectal exam: rectal tone normal, Stool: normal, guaiac negative. Vital Signs: 13:49 BP 134 / 69; Pulse 85; Resp 21; Temp 98.8(O); Pulse Ox 96% on 4 lpm NC; ae4 16:13 BP 100 / 54; Pulse 73; Resp 19; Pulse Ox 100% on R/A; ae4 20:06 BP 92 / 51; Pulse 65; Resp 20; Pulse Ox 100% on 2 lpm NC; Pain 0/10; lw1 21:18 BP 92 / 49; Pulse 67; Resp 20; Pulse Ox 94% on 2 lpm NC; Pain 0/10; lw1 22:08 BP 103 / 58; Pulse 72; Resp 20; Pulse Ox 99% on 2 lpm NC; Pain 0/10; lw1 MDM: 16:03 Patient medically screened. kdr 16:03 Data reviewed: vital signs, nurses notes, lab test result(s), radiologic studies. kdr Counseling: I had a detailed discussion with the patient and/or guardian regarding: the historical points, exam findings, and any diagnostic results supporting the discharge/admit diagnosis, lab results, radiology results, the need for further work-up and treatment in the hospital. Physician consultation: Preeti Hauser MD and will see patient in inpatient room. 06/21 14:06 Order name: Basic Metabolic Panel; Complete Time: 15:49 kdr 06/21 14:06 Order name: CBC with Diff; Complete Time: 15:49 kdr 06/21 14:06 Order name: Creatinine for Radiology; Complete Time: 15:49 kdr 06/21 14:06 Order name: Hepatic Function; Complete Time: 15:49 kdr 06/21 14:06 Order name: Lipase; Complete Time: 15:49 kdr 06/21 14:54 Order name: Manual Differential; Complete Time: 15:49 EDMS 06/21 21:09 Order name: Comprehensive Metabolic Panel EDMS 06/21 21:09 Order name: Comprehensive Metabolic Panel EDMS 06/21 21:09 Order name: Lactate EDMS 06/21 21:09 Order name: Lactate EDMS 06/21 21:09 Order name: Magnesium EDMS 06/21 21:09 Order name: Magnesium EDMS 06/21 21:09 Order name: Phosphorus EDMS 06/21 21:09 Order name: Phosphorus EDMS 06/21 14:27 Order name: Abdomen ; Complete Time: 15:49 EDMS 06/21 21:09 Order name: Protime (+INR) EDMS 06/21 21:10 Order name: Urinalysis EDMS 06/21 21:10 Order name: CBC with Automated Diff EDMS 06/21 21:10 Order name: CBC with Automated Diff EDMS 06/21 21:10 Order name: Protime (+INR) EDMS 06/21 21:10 Order name: PTT, Activated Partial Thromb EDMS 06/21 21:10 Order name: PTT, Activated Partial Thromb EDMS 06/21 14:06 Order name: IV Saline Lock; Complete Time: 14:45 kdr 06/21 14:06 Order name: Labs collected and sent; Complete Time: 14:45 kdr 06/21 21:10 Order name: CONS Physician Consult EDMS 06/21 21:10 Order name: NPO EDMS Administered Medications: 14:53 Drug: Zofran (Ondansetron) 4 mg Route: IVP; Site: left upper arm; ae4 18:53 Follow up: Response: Nausea is decreased ae4 14:55 Drug: morphine 2 mg Route: IVP; Site: left upper arm; ae4 18:53 Follow up: Response: Pain is decreased ae4 15:27 Drug: LevaQUIN 500 mg Volume: 100 ml; Route: IVPB; Infused Over: 60 mins; Site: left ae4 upper arm; 16:35 Follow up: IV Status: Completed infusion ae4 16:08 Not Given (Physician Discretion): Clindamycin 600 mg IVPB once over 30 mins; (mix in 50 ae4 mL) 16:13 Drug: Flagyl 500 mg Volume: 100 ml; Route: IVPB; Rate: 200 ml/hr; Infused Over: 30 ae4 mins; Site: left upper arm; 16:44 Follow up: IV Status: Completed infusion ae4 21:45 Drug: NS 0.9% 250 ml Route: IV; Rate: bolus; Site: left antecubital; lw1 22:07 Follow up: Response: Blood pressure is elevated lw1 21:45 Drug: Albumin 12.5 grams Volume: 50 ml; Route: IVPB; Site: left antecubital; lw1 22:06 Follow up: Response: Blood pressure is elevated; IV Status: Completed infusion lw1 Disposition: 06/22/19 16:03 Hospitalization ordered by Preeti Hauser for Inpatient Admission. Preliminary diagnosis are Abdominal and pelvic pain, Abdominal Free Air, Performated Bowel, Ascites. - Bed requested for Telemetry/MedSurg (Inpatient). - Status is Inpatient Admission. lw1 - Condition is Fair. - Problem is new. - Symptoms are unchanged. Signatures: Dispatcher [employer] EDME Stewrat Lawrence MD MD kdr Kelly Rothman RN RN lp1 Yoly Gil eb Roel Avalos RN RN ae4 Kelle Green RN RN lw1 Corrections: (The following items were deleted from the chart) 14:27 14:23 Abdomen Pelvis W Con+CT.RAD.BRZ ordered. EDME EDME 17:21 16:03 Hospitalization Ordered by Preeti Hauser MD for Inpatient Admission. Preliminary eb diagnosis is Abdominal and pelvic pain; Abdominal Free Air, Performated Bowel; Ascites. Bed requested for Telemetry/MedSurg (Inpatient). Status is Inpatient Admission. Condition is Fair. Problem is new. Symptoms are unchanged. kdr 21:13 17:21 06/22/2019 16:03 Hospitalization Ordered by Preeti Hauser MD for Inpatient lp1 Admission. Preliminary diagnosis is Abdominal and pelvic pain; Abdominal Free Air, Performated Bowel; Ascites. Bed requested for Telemetry/MedSurg (Inpatient). Status is Inpatient Admission. Condition is Fair. Problem is new. Symptoms are unchanged. eb 22:47 21:13 06/22/2019 16:03 Hospitalization Ordered by Preeti Hauser MD for Inpatient lw1 Admission. Preliminary diagnosis is Abdominal and pelvic pain; Abdominal Free Air, Performated Bowel; Ascites. Bed requested for Telemetry/MedSurg (Inpatient). Status is Inpatient Admission. Condition is Fair. Problem is new. Symptoms are unchanged. lp1
[2019-06-22] MEDS ORDERED: ALPRAZOLAM 0.25 MG TABLET PO PRN (20:59)
[2019-06-22] MEDS ORDERED: NA CHLORIDE 0.9% 250 ML ONE (21:29)
[2019-06-22] MEDS ORDERED: ALBUMIN HUMAN 25% 50 ML IV ONE (21:29)
[2019-06-22] MEDS ORDERED: NA CHLORIDE 0.9% 1,000 ML ONE (22:16)
[2019-06-22] MEDS: ALBUMIN HUMAN 25% 100 ML IV SCH (23:00)
[2019-06-22 23:11] VITALS: BMI 25.8
[2019-06-23] MEDS: NA CHLORIDE 0.9% 1,000 ML IV SCH ×2 (00:10→09:55)
[2019-06-23] MEDS: METRONIDAZOLE 500mg IVPB 500 MG/100 ML BAG IV SCH ×5 (00:13→23:53)
[2019-06-23 03:51] LABS: Urine Appearance CLOUDY; Urine Bilirubin NEGATIVE (NEG); Urine Blood 3+ (NEG); Urine Color DK YELLOW; Urine Glucose NEGATIVE (NEG); Urine Protein 2+ (NEG); Urine Specific Gravity 1.015 (1.005-1.030); Urine Urobilinogen 0.2 mg/dL (0.2-1.0)
[2019-06-23 04:24] LABS: Urine Microscopic Reflex ORDER UMIC
[2019-06-23 04:29] LABS: Urine Bacteria >50 /HPF (<20)
[2019-06-23 04:30] LABS: Urine Amorphous Sediment 2+ /HPF (NONE SEEN); Urine Culture Reflex Order REFLEXED; Urine Mucus 2+ /HPF (NONE SEEN)
[2019-06-23] MEDS: ACETAMINOPHEN 500 MG TAB PO PRN ×2 (05:24→21:35)
[2019-06-23] MEDS: ONDANSETRON 4 MG/2 ML VIAL IV PRN (05:27)
[2019-06-23 05:34] LABS: Absolute Lymphocytes (CBC) 0.3 K/uL (0.7-4.9); Basophils % 0.1 % (0-1.3); Hematocrit 32.8 % (36.0-45.0); Lymphocytes % 3.9 % (15.3-44.8); MPV 9.6 fL (7.6-11.3); RBC Red Blood Cell Count 3.42 M/uL (3.86-4.86)
[2019-06-23 05:45] LABS: Protime INR 1.43
[2019-06-23 05:52] LABS: Albumin 2.6 g/dL (3.4-5.0); Bilirubin Total 0.7 mg/dL (0.2-1.0); Magnesium 1.8 mg/dL (1.8-2.4); Phosphorus 3.5 mg/dL (2.5-4.9); Potassium 3.8 mmol/L (3.5-5.1); Protein, Total 5.5 g/dL (6.4-8.2)
--- NOTE | 2019-06-23 07:13 | P.HP ---
Certification for Inpatient Patient admitted to: Inpatient With expected LOS: >2 Midnights Patient will require the following post-hospital care: None Practitioner: I am a practitioner with admitting privileges, knowledge of patient current condition, hospital course, and medical plan of care. Services: Services provided to patient in accordance with Admission requirements found in Title 42 Section 412.3 of the Code of Federal Regulations Patient History Date of Service: 06/22/19 Reason for admission: Anasarca; acute CHF exacerbation; gastric ulcer perforation History of Present Illness: Patient is an 89-year-old who came into the hospital with abdominal pain and anasarca. Patient came into the ER because of abdominal pain. Patient lives at [facility]. It appears patient had a GI perforation. However, the patient does not want any surgical intervention. Patient only wants medical therapy. She does not want to be resuscitated. She has congestive heart failure with an ejection fraction of 25%. She has lower extremity edema as well as ascites. She was admitted to the hospital for IV antibiotic therapy. She will also be getting pain medications. Will continue with gentle hydration because of acute renal insufficiency and will also get Nephrology consultation. Patient will need close monitoring so we do not cause volume overload. Patient's prognosis is very poor. I spoke to patient's son and he concurs that his mother does not want any aggressive measures. He is aware that her prognosis is very poor. Surgery consultation pending. Allergies oxycodone Allergy (Mild, Verified 06/23/19 00:09) Rash Penicillins Allergy (Mild, Verified 06/23/19 00:09) Rash "mycins" Allergy (Mild, Uncoded 02/14/19 13:10) Rash IV contrast Allergy (Mild, Uncoded 02/14/19 13:10) Rash Home Medications: Aspirin 1 tab PO DAILY 02/14/19 Pantoprazole Sodium [Protonix] 1 tab PO DAILY 02/14/19 Furosemide [Lasix*] 20 mg PO DAILY #30 tab 02/16/19 Sacubitril/Valsartan [Entresto 24 mg-26 mg Tablet] 1 tab PO BID #60 tab carvediloL [Coreg*] 6.25 mg PO BID #60 tab 02/16/19 Acetaminophen 650 mg RC Q6HP PRN 06/22/19 Acetaminophen [Acetaminophen ER] 650 mg PO Q6HP PRN 06/22/19 Enema, Fleet Adult [Fleet Enema Adult*] 1 bottle MS DAILY PRN 06/22/19 Mag Hydrox/Aluminum Hyd/Simeth [Jennifer-Lanta Liquid] 30 ml PO Q4HP PRN 06/22/19 Mag Hydroxide 8% [Milk Of Magnesia*] 30 ml PO DAILY PRN 06/22/19 Phenol [Chloraseptic] 2 spray PO Q4H PRN 06/22/19 Sodium Chloride [Saline Nasal [place]] 2 spray IH Q12HP PRN 06/22/19 Spironolactone [Aldactone*] 1 tab PO DAILY 06/22/19 guaiFENesin [Jennifer-Tussin] 5 ml PO Q6HP PRN 06/22/19 - Past Medical/Surgical History Has patient received pneumonia vaccine in the past: Yes Diabetic: No -: Chronic atrial fibrillation not on chronic anti coagulation therapy -: Hypertension -: GERD -: History of GI bleed -: Bilateral hip replacement with revision -: Left knee surgery -: Appendectomy -: Hysterectomy Psychosocial/ Personal History: Patient is a . She lives with her son. - Family History Father Medical History: Other (see notes) Notes: parkinsons Mother Medical History: Hypertension, Diabetes - Social History Smoking Status: Never smoker Alcohol use: No CD- Drugs: No Caffeine use: No Place of Residence: [facility] Review of Systems 10-point ROS is otherwise unremarkable Physical Examination - Vital Signs Temperature: 97.5 F Blood Pressure: 95/53 Pulse: 70 Respirations: 18 Pulse Ox (%): 94 - Physical Exam General: Alert, In no apparent distress, Oriented x3 HEENT: Atraumatic, PERRLA, Mucous membr. moist/pink, EOMI, Sclerae nonicteric Neck: Supple, 2+ carotid pulse no bruit, No LAD, Without JVD or thyroid abnormality Respiratory: Diminished Cardiovascular: Regular rate/rhythm, Normal S1 S2, Systolic murmur Gastrointestinal: Normal bowel sounds, Soft and benign, Non-distended, No tenderness Musculoskeletal: No clubbing, No swelling, No tenderness Integumentary: No rashes Neurological: Normal gait, Normal speech, Normal tone, Sensation intact, Cranial nerves 3-12 intact, Normal affect, Abnormal strength Lymphatics: No axilla or inguinal lymphadenopathy - Studies Laboratory Data (last 24 hrs) 06/22/19 14:33: Creatinine 1.73 H 06/22/19 14:33: WBC 2.1 L D, Hgb 11.7 L, Hct 36.1, Plt Count 146 L D 06/22/19 14:33: Sodium 143, Potassium 3.4 L, BUN 30 H, Creatinine 1.70 H, Glucose 105, Total Bilirubin 1.0, AST 20, ALT 17, Alkaline Phosphatase 66, Lipase 65 L Assessment & Plan - Problems (Diagnosis) (1) Acute systolic CHF (congestive heart failure), NYHA class 2 Current Visit: Yes Status: Acute (2) Gastric perforation Current Visit: Yes Status: Acute (3) Acute kidney injury Current Visit: Yes Status: Acute (4) Elevated procalcitonin Current Visit: Yes Status: Acute (5) Elevated lactic acid level Current Visit: Yes Status: Acute (6) Leukocytosis Current Visit: Yes Status: Acute (7) Urinary tract infection Current Visit: Yes Status: Acute (8) Hypoalbuminemia Current Visit: Yes Status: Acute (9) Anasarca Current Visit: Yes Status: Acute - Plan 1. Continue with gentle IV hydration 2. Continue with IV antibiotics 3. Continue with pain control 4. NPO 5. General surgery consultation; 6. Serial H&H, and we will monitor CBC, BMP, LFTs and lipase along with electrolytes. 7. Patient is a DNAR and does not want any surgery; medical management only 8. Monitor volume status closely. Hydrating because of septic shock from perforation. Patient also with hypoalbuminemia. 9. GI and DVT prophylaxis Discharge Plan: Home Plan to discharge in: Greater than 2 days - Advance Directives Does patient have a Living Will: Yes Does patient have a Durable POA for Healthcare: Yes - Code Status/Comfort Care Code Status Assessed: Yes Code Status: Do Not Attempt Resuscitat Critical Care: No Time Spent Managing PTS Care (In Minutes): 45
[2019-06-23] MEDS ORDERED: KCL 20 MEQ/100 mL IVPB 20 MEQ/100 ML BAG IV SCH (08:00)
[2019-06-23] MEDS ORDERED: MAGNESIUM SULFATE 1 gm IVPB 1 GM/100 ML BAG IV ONE (09:00)
[2019-06-23] MEDS: ENOXAPARIN 30 MG/0.3 ML SQ SCH (09:54)
--- NOTE | 2019-06-23 11:48 | P.PN ---
Subjective Date of Service: 06/23/19 Chief Complaint: Anasarca; acute CHF exacerbation; gastric ulcer perforation Patient is complaining of thirst. She reports only mild abdominal pain. Blood pressure is soft. Patient is afebrile. Physical Examination - Vital Signs Temperature: 97.8 F Blood Pressure: 93/54 Pulse: 68 Respirations: 15 Pulse Ox (%): 94 - Physical Exam General: Alert, In no apparent distress HEENT: Mucous membr. moist/pink, Sclerae nonicteric Neck: Supple, JVD not distended Respiratory: Clear to auscultation bilaterally, Normal air movement Cardiovascular: No edema, Regular rate/rhythm, Normal S1 S2, Edema (Lower extremities) Gastrointestinal: Hypoactive, Soft and benign, No rebound, No guarding, Tenderness (Lower abdomen) Neurological: Normal speech, Other (Nonfocal) - Studies Laboratory Data (last 24 hrs) 06/22/19 14:33: Creatinine 1.73 H 06/22/19 14:33: WBC 2.1 L D, Hgb 11.7 L, Hct 36.1, Plt Count 146 L D 06/22/19 14:33: Sodium 143, Potassium 3.4 L, BUN 30 H, Creatinine 1.70 H, Glucose 105, Total Bilirubin 1.0, AST 20, ALT 17, Alkaline Phosphatase 66, Lipase 65 L Assessment And Plan - Current Problems (Diagnosis) (1) Gastric perforation Current Visit: Yes Status: Acute (2) Acute kidney injury Current Visit: Yes Status: Acute (3) Anasarca Current Visit: Yes Status: Acute (4) Chronic systolic heart failure Current Visit: Yes Status: Chronic (5) Hypoalbuminemia Current Visit: Yes Status: Chronic - Plan I am told patient and family does not want any aggressive measures, and no surgical intervention. Continue supportive measures. Empiric IV antibiotics Slow IV hydration given acute renal failure Pain medications as needed General surgery consult is pending.
[2019-06-23] MEDS: ALBUMIN HUMAN 25% 100 ML IV SCH ×2 (14:00→22:45)
--- NOTE | 2019-06-23 15:50 | P.CNS ---
Date of Consult: 06/23/19 Reason for Consult: BENJI , fluid manamgement Chief Complaint: Anasarca; acute CHF exacerbation; gastric ulcer perforation Allergies oxycodone Allergy (Mild, Verified 06/23/19 00:09) Rash Penicillins Allergy (Mild, Verified 06/23/19 00:09) Rash "mycins" Allergy (Mild, Uncoded 02/14/19 13:10) Rash IV contrast Allergy (Mild, Uncoded 02/14/19 13:10) Rash Home Medications: Aspirin 1 tab PO DAILY 02/14/19 Pantoprazole Sodium [Protonix] 1 tab PO DAILY 02/14/19 Furosemide [Lasix*] 20 mg PO DAILY #30 tab 02/16/19 Sacubitril/Valsartan [Entresto 24 mg-26 mg Tablet] 1 tab PO BID #60 tab carvediloL [Coreg*] 6.25 mg PO BID #60 tab 02/16/19 Acetaminophen 650 mg RC Q6HP PRN 06/22/19 Acetaminophen [Acetaminophen ER] 650 mg PO Q6HP PRN 06/22/19 Enema, Fleet Adult [Fleet Enema Adult*] 1 bottle [place] DAILY PRN 06/22/19 Mag Hydrox/Aluminum Hyd/Simeth [Jennifer-Lanta Liquid] 30 ml PO Q4HP PRN 06/22/19 Mag Hydroxide 8% [Milk Of Magnesia*] 30 ml PO DAILY PRN 06/22/19 Phenol [Chloraseptic] 2 spray PO Q4H PRN 06/22/19 Sodium Chloride [Saline Nasal [place]] 2 spray IH Q12HP PRN 06/22/19 Spironolactone [Aldactone*] 1 tab PO DAILY 06/22/19 guaiFENesin [Jennifer-Tussin] 5 ml PO Q6HP PRN 06/22/19 - Past Medical/Surgical History Diabetic: No -: Chronic atrial fibrillation not on chronic anti coagulation therapy -: Hypertension -: GERD -: History of GI bleed -: Bilateral hip replacement with revision -: Left knee surgery -: Appendectomy -: Hysterectomy Psychosocial/ Personal History: Patient is a . She lives with her son. - Family History Father Medical History: Other (see notes) Notes: parkinsons Mother Medical History: Hypertension, Diabetes - Social History Smoking Status: Unknown if ever smoked Alcohol use: No CD- Drugs: No Caffeine use: No Place of Residence: [facility] Home Physical Examination Temp Pulse Resp BP Pulse Ox 97.7 F 67 17 83/48 L 95 06/23/19 12:00 06/23/19 12:00 06/23/19 12:00 06/23/19 12:00 06/23/19 12:00 - Problems (1) Acute kidney injury Current Visit: Yes Status: Acute Conclusions/Impression: DIANE 89-year-old woman with PMHx of CHF EF 25% , CKD baseline Cr 1.3 sent from SNF for abdominal pain with suspicion for perforated viscous pt found to have BENJI, with bandemia CT revealed B/l pleural effusion pt denied any nausea, vomiting, diarrhea, constipation, fever or chills she also stated that she is refusing HD and any surgical intervention if needed Allergies oxycodone Allergy (Mild, Verified 06/23/19 00:09) Rash Penicillins Allergy (Mild, Verified 06/23/19 00:09) Rash "mycins" Allergy (Mild, Uncoded 02/14/19 13:10) Rash IV contrast Allergy (Mild, Uncoded 02/14/19 13:10) Rash Home Medications: Aspirin 1 tab PO DAILY 02/14/19 Pantoprazole Sodium [Protonix] 1 tab PO DAILY 02/14/19 Furosemide [Lasix*] 20 mg PO DAILY #30 tab 02/16/19 Sacubitril/Valsartan [Entresto 24 mg-26 mg Tablet] 1 tab PO BID #60 tab carvediloL [Coreg*] 6.25 mg PO BID #60 tab 02/16/19 Acetaminophen 650 mg RC Q6HP PRN 06/22/19 Acetaminophen [Acetaminophen ER] 650 mg PO Q6HP PRN 06/22/19 Enema, Fleet Adult [Fleet Enema Adult*] 1 bottle ND DAILY PRN 06/22/19 Mag Hydrox/Aluminum Hyd/Simeth [Jennifer-Lanta Liquid] 30 ml PO Q4HP PRN 06/22/19 Mag Hydroxide 8% [Milk Of Magnesia*] 30 ml PO DAILY PRN 06/22/19 Phenol [Chloraseptic] 2 spray PO Q4H PRN 06/22/19 Sodium Chloride [Saline Nasal [place]] 2 spray IH Q12HP PRN 06/22/19 Spironolactone [Aldactone*] 1 tab PO DAILY 06/22/19 guaiFENesin [Jennifer-Tussin] 5 ml PO Q6HP PRN 06/22/19 - Past Medical/Surgical History Has patient received pneumonia vaccine in the past: Yes Diabetic: No -: Chronic atrial fibrillation not on chronic anti coagulation therapy -: Hypertension -: GERD -: History of GI bleed -: Bilateral hip replacement with revision -: Left knee surgery -: Appendectomy -: Hysterectomy Psychosocial/ Personal History: Patient is a . She lives with her son. - Family History Father Medical History: Other (see notes) Notes: parkinsons Mother Medical History: Hypertension, Diabetes - Social History Smoking Status: Never smoker Alcohol use: No CD- Drugs: No Caffeine use: No Place of Residence: [facility] Home ROS as in HPI Physical exam general: AAOX3, NAD , thin Neck; Supple, No elevated JVD hear: RRR, normal S1,2 no murmur or rub Chest: decreased air netry B/l no rales or wheezes Abdomen: Soft , Nt Extremities edema +2 A/P BENJI on CKD possibly due to ischemic ATN vs Septic GN lt kidney non visualized on CT , will order US renal dose meds will dc IVF , and cont albumin ' will consider lasix if BP stable tomorrow avoid NSAID and contrast Sepsis with bandemia F/u cultures cont Abx will add midodrine refusing pressers CHF EF 25% Poor prognosis
[2019-06-23] MEDS ORDERED: D5 0.9 NS 1,000 ML IV SCH (16:00)
[2019-06-23] MEDS: Levofloxacin 250mg IV 250 MG/50 ML BAG IV SCH (17:23)
--- NOTE | 2019-06-23 19:54 | P.CNS ---
Date of Consult: 06/23/19 PC: I was asked to evaluate this 89-year-old female regards to her abdominal pain. HPC: Patient apparently was at the residential when she began to experience some severe abdominal pain. She was brought to the emergency room for evaluation and treatment. PMH: Coronary artery disease PSHx: Previous hysterectomy SOC: Numerous allergies noted SYS REVIEW: Apart from her esophageal reflux, that causes her amounts problems with food, she states she is otherwise in fairly good health for 89. O/E awake alert, attentive vital signs are stable HEENT: Within normal limits Chest: Chest movement equal bilaterally ABD: Tender but no true guarding or rebound LOCO: Intact DATA: CT scan shows possible free air in the abdominal cavity, as well as ascites. Has elevated white cell count. IMPRESSION: This patient clinically looks very well however has worrisome findings on the CT scan. It is possible that she may have perforated o a viscus which has Re sealed. She point blank refuses any type of surgery, and is DNR status. She says she actually feels much better and would like to be returned to the residential. PLAN: Continue current therapy, and continue to observe.
[2019-06-23] MEDS: MIDODRINE HCL 5 MG TABLET PO SCH (21:36)
[2019-06-24] MEDS: METRONIDAZOLE 500mg IVPB 500 MG/100 ML BAG IV SCH ×4 (05:50→23:36)
[2019-06-24 07:08] LABS: Absolute Lymphocytes (CBC) 0.3 K/uL (0.7-4.9); Basophils % 0.2 % (0-1.3); Hematocrit 36.5 % (36.0-45.0); Lymphocytes % 9.1 % (15.3-44.8); MPV 10.1 fL (7.6-11.3); RBC Red Blood Cell Count 3.79 M/uL (3.86-4.86)
[2019-06-24 07:45] LABS: Albumin 2.7 g/dL (3.4-5.0); Bilirubin Total 0.7 mg/dL (0.2-1.0); Magnesium 1.9 mg/dL (1.8-2.4); Potassium 4.3 mmol/L (3.5-5.1); Protein, Total 5.5 g/dL (6.4-8.2); Thyroid Stimulating Hormone 0.913 uIU/mL (0.360-3.740)
--- NOTE | 2019-06-24 08:53 | RAD REPORT ---
EXAM DESCRIPTION: RAD - Abdomen 1 View (KUB) - 06/24/2019 8:39 am CLINICAL HISTORY: Abdominal pain COMPARISON: Abdomen Pelvis Wo Contrast dated 06/22/2019 FINDINGS: Bowel gas pattern is nonspecific. There is a paucity of bowel gas. Colon does not appear d ilated. Pattern matches the prominent fluid retention pattern seen on the CT study. No free air or pn eumatosis. No suspicious calcifications. Prominent bony degenerative changes are present in the spine. Bilateral hip prostheses again noted. IMPRESSION: Grossly unremarkable KUB examination. Fluid retention in the fatty tissues is evident. KUB findings are not significantly different from the June [address] CT study.
[2019-06-24] MEDS: ENOXAPARIN 30 MG/0.3 ML SQ SCH (10:31)
[2019-06-24] MEDS: MIDODRINE HCL 5 MG TABLET PO SCH ×3 (10:31→20:03)
--- NOTE | 2019-06-24 11:36 | P.PN ---
Subjective Date of Service: 06/24/19 Chief Complaint: Anasarca; acute CHF exacerbation; gastric ulcer perforation Patient is complaining of thirst. She reports only mild abdominal pain. Variable blood pressure readings. Physical Examination - Vital Signs Temperature: 98.3 F Blood Pressure: 92/53 Pulse: 73 Respirations: 15 Pulse Ox (%): 98 - Physical Exam General: In no apparent distress, Confused HEENT: Mucous membr. moist/pink Neck: Supple, JVD not distended Respiratory: Clear to auscultation bilaterally, Normal air movement Cardiovascular: No edema, Regular rate/rhythm, Normal S1 S2, Edema (Bilateral lower extremities) Capillary refill: <2 Seconds Gastrointestinal: Hypoactive, Non-distended, Tenderness, Rebound (Left lower quadrant.) Neurological: Other (Nonfocal) Assessment And Plan - Current Problems (Diagnosis) (1) Gastric perforation Current Visit: Yes Status: Acute (2) Acute kidney injury Current Visit: Yes Status: Acute (3) Anasarca Current Visit: Yes Status: Acute (4) Chronic systolic heart failure Current Visit: Yes Status: Chronic (5) Hypoalbuminemia Current Visit: Yes Status: Chronic - Plan I am told patient and family does not want any aggressive measures, and no surgical intervention. Continue supportive measures. Empiric IV antibiotics Nephrology input appreciated-HETAL Mina per nephrology Ice chips for general surgery. Pain medications as needed
[2019-06-24] MEDS: ALBUMIN HUMAN 25% 100 ML IV SCH ×2 (11:41→22:33)
--- NOTE | 2019-06-24 11:59 | P.PN ---
Subjective Date of Service: 06/24/19 Chief Complaint: Anasarca; acute CHF exacerbation; gastric ulcer perforation Subjective 89-year-old woman with PMHx of CHF EF 25% , CKD baseline Cr 1.3 sent from SNF for abdominal pain with suspicion for perforated viscous pt found to have BENJI, with bandemia CT revealed B/l pleural effusion today Cr trending up will dc IVF will start on PPn and IV lasix F/U cultures not candidate for surgical intervention family to discuss goal of care Allergies oxycodone Allergy (Mild, Verified 06/23/19 00:09) Rash Penicillins Allergy (Mild, Verified 06/23/19 00:09) Rash "mycins" Allergy (Mild, Uncoded 02/14/19 13:10) Rash IV contrast Allergy (Mild, Uncoded 02/14/19 13:10) Rash - Past Medical/Surgical History Has patient received pneumonia vaccine in the past: Yes Diabetic: No -: Chronic atrial fibrillation not on chronic anti coagulation therapy -: Hypertension -: GERD -: History of GI bleed -: Bilateral hip replacement with revision -: Left knee surgery -: Appendectomy -: Hysterectomy Psychosocial/ Personal History: Patient is a . She lives with her son. - Family History Father Medical History: Other (see notes) Notes: parkinsons Mother Medical History: Hypertension, Diabetes - Social History Smoking Status: Never smoker Alcohol use: No CD- Drugs: No Caffeine use: No Place of Residence: [facility]irement ROS as in HPI Physical exam general: , NAD , thin Neck; Supple, No elevated JVD hear: RRR, normal S1,2 no murmur or rub Chest: decreased air netry B/l no rales or wheezes Abdomen: lower abd tenderness, Soft, Nt Extremities edema +2 A/P BENJI on CKD possibly due to ischemic ATN vs Septic GN and cardiorenl syndrome lt kidney non visualized on CT , will order US renal dose meds will dc IVF , and cont albumin ' will add lasix drip avoid NSAID and contrast Sepsis with bandemia F/u cultures cont Abx perforated viscous ? surgery on board pt refusing surgical intervention CHF EF 25% Poor prognosis Physical Examination - Vital Signs Temperature: 98.3 F Blood Pressure: 92/53 Pulse: 73 Respirations: 15 Pulse Ox (%): 98 Assessment And Plan - Current Problems (Diagnosis) (1) Acute kidney injury Current Visit: Yes Status: Acute
[2019-06-24] MEDS: FUROSEMIDE 100 MG in NA CHLORIDE 0.9% 90 ML IV SCH (13:21)
[2019-06-24] MEDS: Levofloxacin 250mg IV 250 MG/50 ML BAG IV SCH (16:57)
[2019-06-24] MEDS ORDERED: AA 4.25%/D10W/ELECTROLYTES 2,000 ML, Lipids 20% 250 ML with MULTIVITAMINS INJ 10 ML IV SCH ×3 (17:00)
[2019-06-24 21:41] VITALS: O2SAT 96
[2019-06-25] MEDS: ACETAMINOPHEN 500 MG TAB PO PRN ×2 (01:43→08:26)
[2019-06-25] MEDS: ONDANSETRON 4 MG/2 ML VIAL IV PRN (01:53)
[2019-06-25] MEDS: METRONIDAZOLE 500mg IVPB 500 MG/100 ML BAG IV SCH ×2 (05:07→12:24)
[2019-06-25] MEDS: MIDODRINE HCL 5 MG TABLET PO SCH ×2 (08:26→13:11)
[2019-06-25] MEDS: ENOXAPARIN 30 MG/0.3 ML SQ SCH (08:26)
--- NOTE | 2019-06-25 08:29 | RAD REPORT ---
EXAM DESCRIPTION: US - Renal Ultrasound-Complete - 06/24/2019 10:16 pm CLINICAL HISTORY: BENJI Flank pain COMPARISON: No comparisons FINDINGS: Both kidneys are highly echogenic and small in size with small bilateral renal cysts. The right kidney measures 8.9 x 5.5 x 4.2 cm. No hydronephrosis. The left kidney measures 6.0 x 2.6 x 2.5 cm. No hydronephrosis. Urinary bladder is incompletely distended due to De Oliveira catheter. IMPRESSION: Echogenic kidneys bilaterally compatible with underlying medical renal disease.
--- NOTE | 2019-06-25 08:45 | RAD REPORT ---
EXAM DESCRIPTION: RAD - Chest Single View - 06/25/2019 7:19 am CLINICAL HISTORY: free air; gastric ulcer perf Chest pain. COMPARISON: Abdomen 1 View (KUB) dated 06/24/2019; Chest Pa And Lat (2 Views) dated 02/15/2019; Chest Single View dated 02/14/2019; Chest Single View dated 08/30/2018; Abdomen Pelvis Wo Contrast dated ; Renal Ultrasound-Complete dated 06/24/2019 FINDINGS: Portable technique limits examination quality. No significant volume free air seen. Bilateral pleural effusions noted with compressive atelectasis i n both lung bases. Heart is mildly enlarged in size. No displaced fractures.
[2019-06-25] MEDS: FUROSEMIDE 100 MG in NA CHLORIDE 0.9% 90 ML IV SCH (09:09)
[2019-06-25] MEDS: ALBUMIN HUMAN 25% 100 ML IV SCH (12:03)
--- NOTE | 2019-06-25 13:46 | P.DS ---
Admission Date: 06/22/19 Discharge Date: 06/25/19 Primary Care Provider: longterm Disposition: TRANSFER TO SKILLED NURSING Discharge Condition: FAIR Reason for Admission: Anasarca; acute CHF exacerbation; gastric ulcer perforation Consultations: Nephrology-Dr. Briones Procedures: ABUS: FINDINGS: Both kidneys are highly echogenic and small in size with small bilateral renal cysts. The right kidney measures 8.9 x 5.5 x 4.2 cm. No hydronephrosis. The left kidney measures 6.0 x 2.6 x 2.5 cm. No hydronephrosis. Urinary bladder is incompletely distended due to De Oliveira catheter. IMPRESSION: Echogenic kidneys bilaterally compatible with underlying medical renal disease. CT Scan: FINDINGS: Moderate bilateral pleural effusions and lower lobe atelectasis present. Cardiomegaly is present without pericardial effusion. Patient has a very pronounced fluid retention pattern throughout the subcutaneous fatty tissues of the abdomen, pelvis and lower chest. Bilateral hip prostheses are in place in this creates a very substantial spray artifact that limits assessment of the lower half of the pelvis. The liver, spleen and pancreas show no suspicious findings on non-contrast imaging. No biliary tree dilatation. Gallbladder is poorly visualized. No cholecystectomy clips are seen. Gallbladder is probably partially contracted and isodense to the surrounding tissues. No hydronephrosis of the right kidney identified. No obstructing calculi. Right kidney appears atrophic. There is a probable upper pole cyst approximately 3 cm in size. Adrenal assessment is very limited. Isodense renal masses and pyelonephritis cannot be excluded in the absence of IV contrast. Urinary bladder is contracted around a De Oliveira catheter. Uterus and ovaries cannot be assessed is still present. Stomach is distended. Retained food and fluid are present. Gastric wall thickening. Air and stool are present in the colon which does not appear to be dilated. There is evidence for diverticulosis. Ascites is present. There is congested or edematous appearance to the peritoneal and retroperitoneal fatty tissues. The anasarca pattern along with absent oral and IV contrast creates very limited tissue plane separation in the peritoneal and retroperitoneal spaces. Small bowel does not appear to be dilated. No pneumatosis suspected. There are several small air densities anteriorly along the deep margin of the abdominal wall. These punctate air collections are questionable for extraluminal air. There is no focal air collection that is in a location that is definitive for free air. Source for any free air is not evident on this examination. No hernia , mass or bulky lymphadenopathy. No omental thickening. Disc and bony degenerative changes are present. IMPRESSION: Anasarca pattern is present with pronounced fluid retention in the subcutaneous fatty tissues along with ascites, peritoneal fat congestion and bilateral pleural effusions. Peritoneal and retroperitoneal assessment is very limited due to the isodense or near isodense soft tissues. Patient has multiple small air densities anteriorly along the deep margin of the anterior abdominal wall. Several of these are concerning for extraluminal free air. A source for free air is not evident. Medical problem list: Abdominal pain secondary to likely GI perforation with CT scan showing anasarca , multiple small air densities, source of free air not evident Chronic systolic CHF Chronic renal disease Chronic atrial fibrillation not on chronic anti coagulation therapy Brief History of Present Illness: 89-year-old female presented to the emergency room with abdominal pain. Patient was evaluated in the emergency room. GI perforation was suspected as CT showed anasarca and free air. Patient was admitted for further evaluation. Hospital Course: Patient presented with abdominal pain. CT scan revealed likely GI perforation. Free air and anasarca was noted. The patient was admitted and evaluated. Surgery was consulted. Patient with multiple medical problems including chronic CHF, chronic atrial fibrillation, and chronic renal disease. Due to her multiple medical issues and advanced age, advanced directives and plan of care was addressed in detail. After a lengthy discussion patient remained do not resuscitate. Surgery was too high risk for this patient. Family decided against surgical intervention. [facility] At discharge patient will continue with Levaquin 250 mg daily and Flagyl 500 mg 3 times a day for 7 days. [facility]. Patient will have do not resuscitate [id number] paperwork in place. This was discussed in detail with the son. Patient with underlying chronic systolic CHF with history of ejection fraction of 25%, GERD, chronic atrial fibrillation not on chronic anti coagulation therapy and chronic renal failure stage IV. At discharge patient may continue with her prior medications of aspirin 81 mg daily, carvedilol 6.25 mg 1 pill twice daily, Entresto 24/26 mg 1 pill twice daily, Lasix 20 mg daily, Aldactone 25 mg daily and Protonix 40 mg daily. Further adjustment in medication can be done by hospice. Vital Signs/Physical Exam: Temp Pulse Resp BP Pulse Ox 98.1 F 71 20 104/59 L 98 06/25/19 08:00 06/25/19 09:09 06/25/19 08:00 06/25/19 09:09 06/25/19 08:00 General: Alert, In no apparent distress HEENT: Atraumatic Neck: Supple Respiratory: Clear to auscultation bilaterally, Normal air movement Cardiovascular: Normal pulses, Regular rate/rhythm Gastrointestinal: Normal bowel sounds, Soft and benign, No masses, No rebound, No guarding, Tenderness (Pain to the epigastric region) Neurological: Dementia Laboratory Data at Discharge: WBC 3.3 K/uL (4.3-10.9) L D 06/24/19 06:37 Hgb 11.5 g/dL (12.0-15.0) L 06/24/19 06:37 Hct 36.5 % (36.0-45.0) 06/24/19 06:37 Plt Count 137 K/uL (152-406) L 06/24/19 06:37 PT 16.6 SECONDS (9.5-12.5) H 06/23/19 05:22 INR 1.43 06/23/19 05:22 APTT 34.2 SECONDS (24.3-36.9) 06/23/19 05:22 Sodium 144 mmol/L (136-145) 06/24/19 06:37 Potassium 4.3 mmol/L (3.5-5.1) 06/24/19 06:37 BUN 41 mg/dL (7-18) H 06/24/19 06:37 Creatinine 2.12 mg/dL (0.55-1.3) H 06/24/19 06:37 Glucose 84 mg/dL (74-106) 06/24/19 06:37 Phosphorus 3.5 mg/dL (2.5-4.9) 06/23/19 05:22 Magnesium 1.9 mg/dL (1.8-2.4) 06/24/19 06:37 Total Bilirubin 0.7 mg/dL (0.2-1.0) 06/24/19 06:37 AST 13 U/L (15-37) L 06/24/19 06:37 ALT 12 U/L (12-78) 06/24/19 06:37 Alkaline Phosphatase 34 U/L (45-117) L 06/24/19 06:37 Lipase 65 U/L (73-393) L 06/22/19 14:33 Home Medications: Aspirin 1 tab PO DAILY 02/14/19 Pantoprazole Sodium [Protonix] 1 tab PO DAILY 02/14/19 Furosemide [Lasix*] 20 mg PO DAILY #30 tab 02/16/19 Sacubitril/Valsartan [Entresto 24 mg-26 mg Tablet] 1 tab PO BID #60 tab carvediloL [Coreg*] 6.25 mg PO BID #60 tab 02/16/19 Acetaminophen 650 mg RC Q6HP PRN 06/22/19 Acetaminophen [Acetaminophen ER] 650 mg PO Q6HP PRN 06/22/19 Mag Hydrox/Aluminum Hyd/Simeth [Jennifer-L[place] Liquid] 30 ml PO Q4HP PRN 06/22/19 Mag Hydroxide 8% [Milk Of Magnesia*] 30 ml PO DAILY PRN 06/22/19 Phenol [Chloraseptic] 2 spray PO Q4H PRN 06/22/19 Sodium Chloride [Saline Nasal Tunica] 2 spray IH Q12HP PRN 06/22/19 Spironolactone [Aldactone*] 1 tab PO DAILY 06/22/19 Levofloxacin [Levaquin] 250 mg PO DAILY #7 tablet 06/25/19 metroNIDAZOLE [Flagyl] 500 mg PO Q8H #21 tablet 06/25/19 New Medications: Levofloxacin [Levaquin] 250 mg PO DAILY #7 tablet metroNIDAZOLE [Flagyl] 500 mg PO Q8H #21 tablet Patient Discharge Instructions: 1. [facility] in place. 2. Patient presented with abdominal pain. CT scan revealed likely GI perforation. Free air and anasarca was noted. The patient was admitted and evaluated. Surgery was consulted. Patient with multiple medical problems including chronic CHF, chronic atrial fibrillation, and chronic renal disease. Due to her multiple medical issues and advanced age, advance directives and plan of care was addressed in detail. After a lengthy discussion patient remained do not resuscitate. Surgery was too high risk for this patient. Family [facility] decided [facility]. At discharge patient will continue with Levaquin 250 mg daily and Flagyl 500 mg 3 times a day for 7 days. [facility]. Patient will have do not resuscitate [id number] paperwork in place. This was discussed in detail with the son. 3. Patient with underlying chronic systolic CHF with history of ejection fraction of 25%, GERD, chronic atrial fibrillation not on chronic anti coagulation therapy and chronic renal failure stage IV. At discharge patient may continue with her prior medications of aspirin 81 mg daily, carvedilol 6.25 mg 1 pill twice daily, Entresto 24/26 mg 1 pill twice daily, Lasix 20 mg daily, Aldactone 25 mg daily and Protonix 40 mg daily. Further adjustment in medication can be done by hospice. Diet: Clear liquid advance to full liquid as tolerated, comfort feeding Activity: Fall precautions Time spent managing pt's care (in minutes): 55
[2019-06-25 15:00] VITALS: BP 102/52; TEMP 98.2
--- NOTE | 2019-06-26 02:07 | PN ---
Date of Progress Note: 06/25/2019 Chief Complaint: [id number] kidney injury, precipitated by prerenal azotemia. Patient has element of renal hypoperfusion due to borderline hypotension. Blood pressure medications were adjusted. Patient had a renal ultrasound done, which showed echogenic kidneys bilaterally compatible with underlying renal disease. Kidney size is small. Patient has small bilateral renal cysts and high echogenic kidneys. Right kidney is 8.9 cm in length and left kidney 6.0. Patient did not want any procedure to be done. Patient had IV fluids started for acute kidney injury subsequently and due to shortness of breath had IV Lasix. Patient has congestive heart failure, cardiorenal syndrome , acute kidney injury due to acute cardiorenal syndrome and ejection fraction of 25%. She was found to have acute kidney injury with bandemia. CT scan of the chest revealed pleural effusion bilaterally. Review of Systems: Denies chest pain, hemoptysis. Denies nausea, vomiting. Physical Examination: Lungs: Diminished breath sounds in the bases. Heart: S1, S2. ABDOMEN: Soft, benign. EXTREMITIES: Slight edema. Laboratory Data: Hemoglobin 11.5, WBC is 3.3, bandemia 13%, platelet count is 137,000. Chemistry shows sodium 144, potassium 4.3, chloride 105, CO2 of 36, BUN 41, creatinine 2.12, glucose 84, phosphorus is pending, magnesium 1.9. Impression And Plan: 1. Acute kidney injury. Renal function has declined over last 48 hours. Creatinine level is up to 2.12 and baseline 1.7. There is elevated BUN up to 41 and metabolic alkalosis secondary to diuretic. Patient will need to continue p.o. hydration. She refused IV fluids. 2. Renal ultrasound showed advanced chronic kidney disease due to benign nephrosclerosis. Patient may need additional workup to screen for proteinuria and to check for any evidence of nephritis. I spent total 36 min including 25 min to coordinate care plan. MELISSA/BRETT Voice ID: [id number] Report ID: [id number]
== END 2019-06-25 15:56 | disposition hospice, inpatient (51) | DRG 871 ==
LOC: ER 13:35 → ERHOLD 21:00 → 2ND 23:01
PROVIDERS: ADMIT Hospitalist; ATTEND Hospitalist
DX: A41.9 Sepsis, unspecified organism (principal); K63.1 Perforation of intestine (nontraumatic); N17.0 Acute kidney failure with tubular necrosis; I50.23 Acute on chronic systolic (congestive) heart failure; I13.0 Hypertensive heart and chronic kidney disease with heart failure and stage 1 through stage 4 chronic kidney disease, or unspecified chronic kidney disease; N18.4 Chronic kidney disease, stage 4 (severe); I48.20 Chronic atrial fibrillation, unspecified; E87.3 Alkalosis; N39.0 Urinary tract infection, site not specified; R18.8 Other ascites; K21.9 Gastro-esophageal reflux disease without esophagitis; E88.09 Other disorders of plasma-protein metabolism, not elsewhere classified; I25.10 Atherosclerotic heart disease of native coronary artery without angina pectoris; Z96.643 Presence of artificial hip joint, bilateral; Z66 Do not resuscitate
CPT/HCPCS: 36415; 71045; 74018; 74176; 76770; 80048; 80053; 80076; 81003; 81015; 82947; 83605; 83690; 83735; 83880; 84100; 84145; 84443; 85025; 85610; 85730; 87040; 87086; 87088; 96365; 96367; 96368; 96375; 99285; J1650; J2270; J2405; J3475; J7030; J7042; P9047